=== PATIENT | male | born 1940 | race Caucasian/White ===

== ENCOUNTER 2024-05-14 08:36 | Inpatient (IN) | payer OTHER, SELFPAY ==
[2024-05-14] VITALS (18 sets, daily range): BP systolic 103–135; BP diastolic 48–101; PULSE 70; BMI 22.7; BMI 22.8; BMI 22.3
[2024-05-14 05:23] LABS: Urine Albumin Trace (Neg - Trace); Urine Bilirubin Negative (Negative); Urine Character Clear (Clear); Urine Color Yellow; Urine Glucose Negative (Negative); Urine Ketone Negative (Negative); Urine Leukocyte Negative (Negative); Urine Nitrite Negative (Negative); Urine Occult Blood Negative (Negative); Urine Specific Gravity 1.015 (<1.030); Urine Urobilinogen Negative (Neg - 1+); Urine pH 6.5 (5.0-9.0)
[2024-05-14 05:26] LABS: % Basophils 0.2 % (0-2); % Immature Granulocytes 0.5 % (0-0.5); % Lymphocytes 4.2 % (20.5-51.1); % Monocytes 6.7 % (1.7-9.3); % Neutrophils 88.4 % (42.2-75.2); Absolute Immature Granulocytes 0.1 10^3/uL (0-0.05); Absolute Lymphocytes 0.7 10^3/uL (1.2-3.4); Absolute Monocytes 1.1 10^3/uL (0.1-0.6); Hematocrit 30.2 % (39.0-52.0); Hemoglobin 10.9 g/dL (13.0-18.0); Mean Corp Hgb Conc. 36.1 g/dL (33.0-37.0); Mean Corpuscular Hgb 29.5 pg (27.0-31.0); Mean Corpuscular Volume 81.6 fL (80.0-94.0); Mean Platelet Volume 9.3 fL (7.4-10.4); Nucleated Red Blood Cells % 0 % (-); Platelet Count 208 10^3/uL (130-400); Red Cell Dist. Width 12.9 % (11.5-14.5); White Blood Cell Count 15.8 10^3/uL (4.8-10.8)
[2024-05-14 05:51] LABS: ALT (SGPT) 17 U/L (0-50); AST (SGOT) 48 U/L (17-59); Alkaline Phosphatase 128 U/L (38-126); Blood Urea Nitrogen 35 mg/dl (9-20); Calcium 12.7 mg/dl (8.4-10.2); Carbon Dioxide 22 mmol/L (22-30); Chloride 92 mmol/L (98-107); Estimated Creatinine Clearance 53 ml/min; Glucose 114 mg/dl (70-99); Potassium 3.2 mmol/L (3.5-5.1); Sodium 126 mmol/L (135-145); Total Bilirubin 0.7 mg/dl (0.2-1.3); Total Protein 6.5 g/dl (6.3-8.2); eGFR > 60.00
--- NOTE | 2024-05-14 06:21 | ED.GENMED ---
History of Present Illness
General
Chief Complaint: Change in Mental Status
Source: patient, family (Son who is at bedside) and ambulance crew
Exam Limitations: none
Time Seen by Provider: 05/14/24 05:12
Nursing documentation reviewed up to this point in time: agreed with except (Patient does not have history of cancer, no history of thyroid cancer.)
History of Present Illness
History of Present Illness:
This is an 83-year-old gentleman who resides at home with his son. He has history of hypertension, GERD, hyperlipidemia as well as history of hyperparathyroidism with hypercalcemia for which he underwent parathyroidectomy yesterday at [facility]. Discharged to home yesterday afternoon and was doing well until yesterday evening when family became concerned for mild confusion. Patient seemed to have difficulty with his speech, seems somewhat confused, word searching. He was also
noted to have 1 or 2 episodes of diarrhea yesterday but no falls.
He has not had a fever, no cough, no shortness of breath. No headache, no dizziness nor lightheadedness. No abdominal pain. No nausea or vomiting.
He does note mild low back pain but reports history of chronic low back pain.
Since arrival to the ED, son who is now at bedside feels that his father overall appears improved. He does note that his father has occasional confusion, mild dementia but seemed much more pronounced last night.
They have not noticed any tremor and patient himself denies feeling tremulous.
Past History
Past History
ED Past Medical History: GERD, HTN, Hypercholesterolemia and Other (Hyperparathyroidism, hypercalcemia; chronic low back pain); Negative Cancer
ED Past Surgical History: Other (Parathyroidectomy May 13, 2024 at [facility])
Social History
Tobacco: Non-smoker
Alcohol: None
Personal:
Living: with family
Employment: Retired
Family History
Family History: Other (Noncontributory)
Phy Exam
Physical Exam
Physical Exam:
GENERAL: 83-year-old gentleman appears his stated age, bright and alert, pleasant, appears in no acute distress. Mild intermittent word searching is noted, very mild confusion, initially thought that the year was 1999 and but then once corrected,
was able to repeat the correct year.
EYE: pupils equal and reactive. anicteric
NECK: Anterior lower neck incision dry and intact with intact Steri-Strips. No local tenderness to palpation. Supple, no meningismus, no significant adenopathy.
ENT: posterior pharynx is clear, oral mucosa is minimally dry.. TM clear b/l, nares patent.
CARDIAC: Regular rate and rhythm. no murmur.
LUNGS: Clear breath sounds bilaterally, no acute respiratory distress, no wheezes/rales/rhonchi
ABDOMEN: Soft, nondistended, without focal tenderness, no r/g, no cvat. normoactive BS.
NEUROLOGICAL: Alert and oriented x2, no focal neuro deficits. Motor strength is 5/5 bilaterally. Gross sensation is intact. No tremor nor asterixis.
SKIN: Warm and dry, normal color, skin intact. No rash.
MUSCULOSKELETAL: No C/C/E. peripheral pulses are full and equal b/l. No palpable tenderness.
PSYCH: Normal and appropriate interaction.
Course
Orders/Labs/Results
Orders:
Orders
05/14/24 04:31
Straight cath- Treatment ONCE
Pulse Ox/cont/shift [RESP] Urgent
Quantity: 1
Special Instructions: CONTINUOUS
05/14/24 04:49
Complete Blood Count/With Diff Urgent
Comprehensive Metabolic Panel Urgent
Urinalysis Reflex To Culture Urgent
Date Specimen was Collected: 05/14/24
Time Specimen was Collected: 04:31
05/14/24 05:28
CT Head W/o Iv Contrast Urgent
Comment:
Reason For Exam: acute change in MS
05/14/24 05:58
0.9% Sodium Chloride 1000 ml [Nss] 1,000 ml IV BOLUS
Potassium Chloride [KCl] 40 meq PO NOW STA
05/14/24 06:21
Potassium Chloride Powder [Klor-Con] 40 meq .ROUTE .STK-MED ONE
05/14/24 06:24
Potassium Chloride Powder [Klor-Con] 40 meq PO NOW STA
Abnormal Lab Results
05/14/24
04:49
WBC 15.8 H 10^3/uL
(4.8-10.8)
RBC 3.70 L 10^6/uL
(4.70-6.10)
Hgb 10.9 L g/dL
(13.0-18.0)
Hct 30.2 L %
(39.0-52.0)
Abs Immat Gran (auto) 0.1 H 10^3/uL
(0-0.05)
Absolute Neuts (auto) 14.0 H 10^3/uL
(1.4-6.5)
Absolute Lymphs (auto) 0.7 L 10^3/uL
(1.2-3.4)
Absolute Monos (auto) 1.1 H 10^3/uL
(0.1-0.6)
Neutrophils % 88.4 H %
(42.2-75.2)
Lymphocytes % 4.2 L %
(20.5-51.1)
Sodium 126 L mmol/L
(135-145)
Potassium 3.2 L mmol/L
(3.5-5.1)
Chloride 92 L mmol/L
(98-107)
BUN 35 H mg/dl
(9-20)
Glucose 114 H mg/dl
(70-99)
Calcium 12.7 H mg/dl
(8.4-10.2)
Alkaline Phosphatase 128 H U/L
(38-126)
05/14/24 04:49
05/14/24 04:49
Vital Signs
Initial and Last Documented VS:
Initial Vital Signs
Temp Pulse Resp BP Pulse Ox
97.9 F 79 22 135/73 99
05/14/24 04:20 05/14/24 04:20 05/14/24 04:20 05/14/24 04:20 05/14/24 04:20
Last Documented Vital Signs
Temp Pulse Resp BP Pulse Ox
97.5 F 65 15 115/48 96
05/14/24 07:06 05/14/24 07:06 05/14/24 07:06 05/14/24 07:06 05/14/24 07:06
MDM/Problems Addressed
Differential Diagnosis Includes:
Acute confusion, mild intermittent word searching. Concern for adverse reaction to anesthesia, concern for acute hypocalcemia, acute electrolyte abnormality, other consideration is CVA however no focal neuro deficits.
Will check labs, CT of the head.
Will continue close monitoring of neurostatus.
Chronic conditions affecting care: HTN and Other (Hyperparathyroidism)
*Radiology
Radiology exam reviewed: radiology read reviewed (CT of the head shows no hemorrhage nor other acute intracranial abnormality. Chronic microvascular disease, global parenchymal volume loss.)
*Pulse Oximetry
Patient hypoxic: no
*Network Analyst Interpretation
Rate: normal
Interpretation: normal
Rhythm: sinus
*Critical Care Note
Total Time (30-74mins, 75-104mins- exclusive of procedures): Not Applicable
Update Note
Update Note:
05/14/[address] of the head shows no acute findings, chronic microvascular disease with global parenchymal volume loss.
Labs remarkable for elevated white blood cell count of 15.8, mild anemia, moderate hyponatremia with sodium of 126, mild hypokalemia with potassium of 3.2.
Moderately elevated BUN of 35 which is trended up significantly from previous. Normal creatinine. Hypercalcemia at 12.7. Urinalysis is unremarkable.
Patient remains awake and alert but remains somewhat confused, intermittently pointing to unknown objects. Word searching and stumbling through his verbalizations which according to son is new for him. Son concerned that his father continues to
seem 'off' much more confused than usual.
Mild sporadic hyponatremia noted in the past but most recently 2021 sodium near normal at 134.
Elevated BUN of 35 has trended up significantly from 13, 2 years ago.
Will replete potassium orally and initiate IV normal saline for gentle hydration.
Due to continued confusion, concern for adverse reaction to anesthesia, acute hyponatremia related versus acute neurologic event thus patient will require acute hospitalization.
ED Attending Note
-
Portions of this chart may have been created with voice recognition software.� Occasional wrong word or��sound alike� substitutions may have occurred due to the inherent limitations of voice recognition software.
Discharge Plan
Departure
Patient Disposition: Admit
Date of Disposition: 05/14/24
Time of Disposition: 07:12
Admit to: Med/Surg
Presentation/result/management discussed w/ accepting MD/DO: Hospitalist
Condition: Fair
Discharge Problem:
Acute change in mental status/confusion, Acute hyponatremia, hypercalcemia r/t hyperparathyroidism, Acute hypokalemia, S/P parathyroidectomy
Prescriptions:
No Action
flaxseed oil 1,000 MG capsule
1,000 mg PO BID
green tea leaf extract 250 MG capsule
315 mg PO DAILY
B-complex with vitamin C 1 EACH tablet
1 ea PO HS
coenzyme Q10 [Co Q-10] 100 MG capsule
300 mg PO DAILY
cinnamon bark [Cinnamon] 500 MG capsule
1,000 mg PO DAILY
Astragalus 470 MG capsule
470 mg PO BID
red yeast rice 600 MG capsule
600 mg PO BID
hydrochlorothiazide 25 MG tablet
25 mg PO DAILY
milk thistle 500 MG capsule
1,000 mg PO BID
niacin 100 MG tablet
100 mg PO HS
multivitamin 1 EACH tablet
1 ea PO DAILY
atorvastatin 80 MG tablet
20 mg PO HS
ascorbic acid (vitamin C) [Vitamin C] 500 MG tablet
1,000 mg PO DAILY
amlodipine [Norvasc] 10 MG tablet
10 mg PO DAILY
losartan [Cozaar] 100 MG tablet
100 mg PO DAILY
zinc 10 MG tablet
20 mg PO DAILY
cholecalciferol (vitamin D3) 2,000 UNITS tablet
2,000 units PO DAILY
Magnesium 250 MG Tablet
500 mg PO DAILY
hydrochlorothiazide 25 mg
25 mg PO DAILY
omeprazole 40 mg
40 mg PO DAILY
ginseng 100 mg Capsule
600 mg PO DAILY
garlic extract 1,000 mg
2 tab PO DAILY
Referrals:
UNKNOWN - PT DOES,NOT KNOW [Family Provider] -
Interventions
Interventions:
*Risk Screen - Suicide Last Done: 05/14/24 04:20
*General Assessment Last Done: 05/14/24 04:20
*Neglect/Abuse Screening Last Done: 05/14/24 04:20
ED- Fall Risk Assessment Last Done: 05/14/24 04:20
*ED COVID-19 Vaccine History Last Done: 05/14/24 04:20
ED- Neurological Assessment Last Done: 05/14/24 04:32
ED Swallowing Screen Last Done: 05/14/24 04:32
Discharge Date and Time
Print Language: JAPANESE
[2024-05-14] MEDS: KLOR-CON 40 MEQ PO (06:25)
[2024-05-14] MEDS: NSS 1000 IV (06:25)
--- NOTE | 2024-05-14 07:45 | EDRN ---
this RN entered the pts room and the pt is resting in stretcher in the lowest position, side rails up x2, call bridges within reach, HOB elevated, no s/s of distress, VS WNL, NIH performed and found to be at a score of 1, the pt asked this RN to change
his brief, this RN changed the pts brief and gown and linens, will continue to monitor the pt closely
--- NOTE | 2024-05-14 08:09 | HPS.HSE ---
Addendum entered and electronically signed by Steve Singh MD 05/14/24 14:56:
f/u BMP showing Ca down to 11.9 trending down, PTH 10 only.
Original Note:
Family Physician
-
Family Physician: NOT KNOW UNKNOWN - PT DOES
Chief Complaint
-
Confusion/word finding difficulty
History of Present Illness
Patient is 83-year-old male with past medical history of essential hypertension, hyperlipidemia, history of pacemaker placement and removal?, Parathyroid adenoma was brought in by family after patient was noted to be confused and having word
finding difficulty. According to ER discussion with family patient may have some baseline cognitive dysfunction but felt to be worse than normal. Of note patient have underwent parathyroidectomy by Dr. Mendoza at [facility] on
05/13/yesterday. Postoperatively patient was provided calcium and was discharged on standard tapering dose of calcium. Patient at home was noted to be more confused and disoriented. In ER patient also remains disoriented and not able to provide
clear history. I contacted patient's son and ENT doctor and discussed case in with side new diarrhea no other symptom has been reported.
Patient family planning to visit patient soon in hospital and will be able to gather more information.
Medical History
Past Medical History
Past Medical History: Reports Other
Additional Past Medical History:
essential hypertension, hyperlipidemia, history of pacemaker placement and removal?, Parathyroid adenoma
Past Surgical History: Reports Other
Social History
Tobacco: Non-smoker
Alcohol: Occasional
Living: With Family
Family History
Family History: Not pertinent
Allergies / Home Medications
Allergies reflects when Allergies were last updated in [facility].
Home Medications with original date entered in [facility]
Allergy/Medication List:
Allergies
Allergy/AdvReac Type Severity Reaction Status Date / Time
Cephalosporins Allergy pt denies Verified 05/14/24 04:18
allergy
penicillin G Allergy Rash Verified 05/14/24 04:18
Penicillins Allergy Rash Verified 05/14/24 04:18
Home Medications
B-complex with vitamin C 1 ea PO HS 10/11/11
astragalus root 470 mg capsule (Astragalus) 470 mg PO BID 10/11/11
cinnamon bark 500 mg capsule (Cinnamon) 1,000 mg PO DAILY 10/11/11
coenzyme Q10 100 mg capsule (Co Q-10) 300 mg PO DAILY 10/11/11
flaxseed oil 1,000 mg capsule 1,000 mg PO BID 10/11/11
green tea leaf extract 250 mg capsule 315 mg PO DAILY 10/11/11
red yeast rice 600 mg capsule 600 mg PO BID 10/11/11
Magnesium 500 mg PO DAILY 12/04/21
amlodipine 10 mg tablet (Norvasc) 10 mg PO DAILY 12/04/21
ascorbic acid (vitamin C) 500 mg tablet (Vitamin C) 1,000 mg PO DAILY 12/04/21
atorvastatin 80 mg tablet 20 mg PO HS 12/04/21
cholecalciferol (vitamin D3) 50 mcg (2,000 unit) tablet 2,000 units PO DAILY 12/04/21
hydrochlorothiazide 25 mg tablet 25 mg PO DAILY 12/04/21
losartan 100 mg tablet (Cozaar) 100 mg PO DAILY 12/04/21
milk thistle 500 mg capsule 1,000 mg PO BID 12/04/21
multivitamin 1 ea PO DAILY 12/04/21
niacin 100 mg tablet 100 mg PO HS 12/04/21
zinc 10 mg tablet 20 mg PO DAILY 12/04/21
garlic extract 2 tab PO DAILY 05/14/24
ginseng 100 mg capsule 600 mg PO DAILY 05/14/24
hydrochlorothiazide 25 mg PO DAILY 05/14/24
omeprazole 40 mg PO DAILY 05/14/24
Review of Systems
-
Unable to obtain full review of systems at this time due to: Acuity
Physical Exam
Vital Signs
Vital Signs
Temp Pulse Resp BP Pulse Ox
97.5 F 65 15 115/65 99
05/14/24 07:06 05/14/24 08:00 05/14/24 07:06 05/14/24 08:00 05/14/24 08:00
Physical Exam
General: Comfortable and Conversant
HEENT: Atraumatic and Other (Midline neck dressing, no bleeding.); No Oxygen
Respiratory: Clear
Cardiac: S1/S2 and Regular Rhythm; No Murmur or Rub
GI: Soft, Non Tender, Non Distended and Normal Bowel Sounds; No Organomegaly
Musculoskeletal: No Edema
Skin: No Rash
Neuro: Awake, Alert, Oriented and Nonfocal/grossly intact
Laboratory Results
-
05/14/24 04:49
05/14/24 04:49
Laboratory Results
Total Bilirubin 0.7 mg/dl (0.2-1.3) 05/14/24 04:49
AST 48 U/L (17-59) 05/14/24 04:49
ALT 17 U/L (0-50) 05/14/24 04:49
Alkaline Phosphatase 128 U/L (38-126) H 05/14/24 04:49
Data Reviewed
-
Lab Data: Labs Reviewed by me and Discussed with Family
Impression/Plan
-
1. Acute metabolic encephalopathy
h/o Baseline cognitive decline?
-patient remains pleasantly disoriented and not able to provide any meaningful information
-suspecting this from hypercalcemia
-have word finding difficulty - need to r/o CVA/expressive aphasia
-no signs of sepsis, WBC elevated 16k, afebrile, UA clear, cxr pending
-Not on any narcotic/sedative medication
2. POD #1 parathyroidectomy for parathyroid adenoma
Hyperglycemia
-Patient underwent parathyroidectomy for parathyroid adenoma by Dr. Oscar Mendoza in [facility], contacted and case discussed. planning to send me pre-op labs once get chance.
-Patient Total ca 12.7, ionized calcium/vit D/PTH level check ordered
-maintain on IVF for now
3. Hyponatremia
-presumed acute and with reported diarrhea hypovolemic in nature
-Urine na/osm check pending
-will need to provide IVF for hypercalcemia treatment
4. Hypokalemia
-replaced
5. R/o CVA
-Expressive aphasia/word finding difficulty likely with Hypoglycemia/confusion related
-As patient had parathyroidectomy/neck manipulation emergent CTA head and neck to rule out any vascular complication
-Routine MRI brain without contrast ordered to rule out small stroke as well
-avoiding full ASA loading with neck sx, will provide baby aspirin
-Need to clear ST eval before oral meds given
6. Essential HTN
-BP normal, hold home anti-hypertensive medication
7. HLD
- continue statin
DVT PPX - scd
Full code
Case discussed with patient primary ENT
Son briefly updated, planning to visit hospital will discuss further once in hospital
Total time spent : 77 mins
I personally saw and examined the patient.
I have reviewed all diagnostic interpretations and treatment plans as written.
Time includes patient management by me, time spent at the patients bedside, time to review lab and imaging results, discussing patient care, documentation in the medical record, and time spent with the family or caregiver and discussing care plan
with RN/Consultants.
[2024-05-14 08:37] LABS: Osmolality Urine 342 mOsm/kg (300-900)
--- NOTE | 2024-05-14 08:45 | EDRN ---
this RN gave verbal report to the receiving nurse Lemuel CLAY, this RN transferred the pt to ED Bed #17
[2024-05-14 08:56] LABS: Calcium 12.3 mg/dl (8.4-10.2)
[2024-05-14 09:05] LABS: Urine Sodium 61 mmol/L (30-90)
[2024-05-14 09:08] LABS: Ionized Calcium 1.61 mMOL/L (1.15-1.33)
[2024-05-14] MEDS: LR 1000 IV ×2 (09:46→19:56)
[2024-05-14 10:10] LABS: Vitamin D, 25-OH*** 53.9 ng/mL (30-80)
[2024-05-14 11:50] LABS: Intact PTH 10.3 pg/ml (13.6-85.8)
[2024-05-14] MEDS: LOW STRENGTH ASPIRIN 81 MG PO (12:00)
[2024-05-14 12:32] LABS: Blood Urea Nitrogen 25 mg/dl (9-20); Calcium 11.9 mg/dl (8.4-10.2); Carbon Dioxide 28 mmol/L (22-30); Chloride 96 mmol/L (98-107); Estimated Creatinine Clearance 59 ml/min; Glucose 115 mg/dl (70-99); Potassium 3.8 mmol/L (3.5-5.1); Sodium 128 mmol/L (135-145); eGFR > 60.00
--- NOTE | 2024-05-14 14:18 | PTCARENOTE ---
1418 Pt arrived from ED to room 337-2. Pt accompanied by reliability technician.
[2024-05-14 17:47] LABS: Blood Urea Nitrogen 22 mg/dl (9-20); Calcium 11.4 mg/dl (8.4-10.2); Carbon Dioxide 25 mmol/L (22-30); Chloride 98 mmol/L (98-107); Estimated Creatinine Clearance 73 ml/min; Glucose 98 mg/dl (70-99); Potassium 3.4 mmol/L (3.5-5.1); Sodium 127 mmol/L (135-145); eGFR > 60.00
--- NOTE | 2024-05-14 18:38 | CON.MD ---
Consultation - Medical
-
83 y.o. WM admitted with hypercalcemia calcium 12.7 and is POD#1 parathyroidectomy at [facility]. Pt is mentating better than described upon arrival. reportedly has been confused and disoriented. He indicates was administered PO calcium following
his surgery in the hospital. Currently, calcium improving with IV hydration. Complicating picture is low Na, also improving and in the context of diarrhea. Baseline calcium from 2021 here was 11.0. PTH currently suppressed at 10. Agree with gentle
IV hydration which is correcting the calcium appropriately. I am not familiar with the parathyroid postsurgical protocol at [facility], but many centers administer calcium postoperatively for a few days to avoid hypocalcemia from parathyroid
glandular 'stunning' which can occur in the 3 days following surgery. That the PTH is fully suppressed suggests the surgery was successful, as parathyroid hyperactivity is difficult to suppress with active disease, even with hypercalcemia. Would
avoid the temptation to treat with bisphosphonates, as he can still experience a calcium dip once the calcium supplementation is fully out of his system. I do not believe that manipulation of the parathyroid glands was causative. Would continue
present course with IV fluids and electrolyte monitoring, and continued withholding of calcium. If for some reason calcium remains elevated can find alternative to HCTZ at home, or even start low dose sensipar, but hopefully that will not be needed.
He will need close monitoring as an outpatient, but in most cases the levels settle out without need for additional treatment or supplementation. Please call me with questions or concerns, thanks.
[2024-05-14] MEDS: LIPITOR 20 MG PO (23:58)
[2024-05-15 00:59] LABS: Blood Urea Nitrogen 24 mg/dl (9-20); Calcium 11.2 mg/dl (8.4-10.2); Carbon Dioxide 25 mmol/L (22-30); Chloride 100 mmol/L (98-107); Estimated Creatinine Clearance 64 ml/min; Glucose 93 mg/dl (70-99); Potassium 3.4 mmol/L (3.5-5.1); Sodium 129 mmol/L (135-145); eGFR > 60.00
[2024-05-15 03:15] VITALS: BP 117/66
[2024-05-15 05:46] LABS: Hematocrit 29.7 % (39.0-52.0); Hemoglobin 10.6 g/dL (13.0-18.0); Mean Corp Hgb Conc. 35.7 g/dL (33.0-37.0); Mean Corpuscular Volume 84.1 fL (80.0-94.0); Platelet Count 210 10^3/uL (130-400); Red Blood Cell Count 3.53 10^6/uL (4.70-6.10); Red Cell Dist. Width 13.3 % (11.5-14.5); White Blood Cell Count 9.2 10^3/uL (4.8-10.8)
[2024-05-15 06:08] LABS: Blood Urea Nitrogen 21 mg/dl (9-20); Calcium 11.3 mg/dl (8.4-10.2); Carbon Dioxide 27 mmol/L (22-30); Chloride 97 mmol/L (98-107); Estimated Creatinine Clearance 64 ml/min; Glucose 98 mg/dl (70-99); HDL Cholesterol 49 mg/dl; LDL Cholesterol, Calculated 90 mg/dl; Potassium 3.4 mmol/L (3.5-5.1); Sodium 130 mmol/L (135-145); Total Cholesterol 157 mg/dl (50-199); Triglyceride 93 mg/dl (10-149); Very Low Density Lipoprotein 18 mg/dl (0-30); eGFR > 60.00
[2024-05-15 08:07] VITALS: BP 121/68
[2024-05-15 08:55] VITALS: BP 133/79; PULSE 71; O2SAT 97
[2024-05-15 09:02] VITALS: BP 133/79; PULSE 71; O2SAT 97
[2024-05-15] MEDS: LOW STRENGTH ASPIRIN 81 MG PO (10:02)
[2024-05-15] MEDS: LR 1000 IV ×2 (10:05→20:21)
[2024-05-15 12:36] LABS: Blood Urea Nitrogen 19 mg/dl (9-20); Calcium 11.1 mg/dl (8.4-10.2); Carbon Dioxide 30 mmol/L (22-30); Chloride 97 mmol/L (98-107); Estimated Creatinine Clearance 64 ml/min; Glucose 95 mg/dl (70-99); Potassium 3.6 mmol/L (3.5-5.1); Sodium 131 mmol/L (135-145); eGFR > 60.00
--- NOTE | 2024-05-15 13:44 | W.PN.HOSP.TC ---
Today's Communication/Plan
-
f/u Ca level
maintain on IVf
continue pt/ot
Assessment / Plan
Assessment / Plan
1. Acute metabolic encephalopathy - Improved
-patient mentation is much better today
-suspecting this from hypercalcemia
-have word finding difficulty - need to r/o CVA/expressive aphasia
-no signs of sepsis/infection. wbc normalized.
-Not on any narcotic/sedative medication
2. POD #2 parathyroidectomy for parathyroid adenoma
Hypercalcemia
-Patient underwent parathyroidectomy for parathyroid adenoma by Dr. Oscar Mendoza in [facility], contacted and case discussed. planning to send me pre-op labs once get chance.
-Patient Total ca 12.7, ionized calcium 1.6 PTH 10 in ER
-Calcium trending down with IVF.
-Endocrinology evaluated and help appreciated.
-Last BMP showing calcium of 11.1, repeat ordered at 1800
3. Hyponatremia - Improving
-presumed acute and with reported diarrhea hypovolemic in nature
-improving slowly with IVF
4. Hypokalemia
-replaced
5. R/o CVA
-Expressive aphasia/word finding difficulty likely with Hypoglycemia/confusion related
-CTA h&N did not show any carotid stenosis/clot
-MRI brain cancelled?
6. Essential HTN
-BP normal, hold home anti-hypertensive medication
7. HLD
- continue statin
DVT PPX - scd
Full code
Care plan discussed with Dr. Murillo/Primary ENT yesterday
Anticipated Discharge: Within 24 hours
Subjective/Interval History
-
Date of Service: May 15, 2024
Patient mentation is better
No reported issues overnight
Objective Data
-
Labs:
Laboratory Results
05/15/24 05/15/24 05/15/24
05:25 11:53 18:00
WBC 9.2
Hgb 10.6 L
Hct 29.7 L
Plt Count 210
Sodium 130 L 131 L Pending
Potassium 3.4 L 3.6 Pending
Chloride 97 L 97 L Pending
Carbon Dioxide 27 30 Pending
BUN 21 H 19 Pending
Creatinine 0.8 0.8 Pending
Glucose 98 95 Pending
Calcium 11.3 H 11.1 H Pending
Vital Signs:
Vital Signs
Temp Pulse Resp BP Pulse Ox
97.4 F 71 17 121/68 94
05/15/24 08:07 05/15/24 08:07 05/15/24 08:07 05/15/24 08:07 05/15/24 08:07
I&O
05/14/24 05/15/24 05/16/24
06:59 06:59 06:59
Intake Total 240 / 240
Output Total 1200 / 1200
Balance -960 / -960
Review of Systems
-
Respiratory: Reports No Symptoms
Cardiac: Reports No Symptoms
Abdomen/GI: Reports No Symptoms
Physical Exam
-
General: No Apparent Distress and Comfortable
HEENT: Negative Oxygen
Respiratory: Clear to Auscultation
Cardiac: Regular Rhythm and S1/S2; Negative Murmur or Rub
GI: Soft, Nontender, Nondistended and Normal Bowel Sounds
Musculoskeletal: No Edema
Neuro: Awake, Alert, Oriented, No Motor Deficits and Nonfocal/Grossly Intact
Psych: Calm
[2024-05-15 15:51] VITALS: BP 118/68
--- NOTE | 2024-05-15 18:26 | CM ---
met with patient at bedside.patient lives with his son in house with 1 deric,his bed and bath is on the first level.he amb with a cane,and is I with his adl.his sons jyoti and angeline share poa.dr stephens is his pcp and he uses [facility] [place]
pa.ptient states he has never had a vn or been to ip rehab.
pmh:parathyroidectomy 1 day ago at [facility],mild dementia
patient is adm with metabolic encephelopathy,he is on ivf,ca trending down,seen by pt who rec home vs snf.plan is to follow therapy's rec.
[2024-05-15 18:56] LABS: Blood Urea Nitrogen 23 mg/dl (9-20); Calcium 10.8 mg/dl (8.4-10.2); Carbon Dioxide 26 mmol/L (22-30); Chloride 96 mmol/L (98-107); Estimated Creatinine Clearance 64 ml/min; Glucose 148 mg/dl (70-99); Potassium 3.8 mmol/L (3.5-5.1); Sodium 130 mmol/L (135-145); eGFR > 60.00
[2024-05-15] MEDS: LIPITOR 20 MG PO (20:23)
[2024-05-15 23:03] VITALS: BP 129/75
[2024-05-16 03:19] VITALS: BP 137/78
[2024-05-16] MEDS: LR 1000 IV (04:55)
[2024-05-16 06:49] VITALS: BMI 22.0
[2024-05-16 07:26] VITALS: BP 131/75
[2024-05-16 08:11] LABS: Hemoglobin 10.9 g/dL (13.0-18.0); Mean Corp Hgb Conc. 35.2 g/dL (33.0-37.0); Mean Corpuscular Hgb 29.4 pg (27.0-31.0); Mean Corpuscular Volume 83.6 fL (80.0-94.0); Mean Platelet Volume 9.4 fL (7.4-10.4); Platelet Count 247 10^3/uL (130-400); Red Blood Cell Count 3.71 10^6/uL (4.70-6.10); Red Cell Dist. Width 13.1 % (11.5-14.5); White Blood Cell Count 10.3 10^3/uL (4.8-10.8)
[2024-05-16 08:33] LABS: Blood Urea Nitrogen 17 mg/dl (9-20); Calcium 10.6 mg/dl (8.4-10.2); Carbon Dioxide 26 mmol/L (22-30); Chloride 100 mmol/L (98-107); Estimated Creatinine Clearance 72 ml/min; Glucose 75 mg/dl (70-99); Potassium 3.8 mmol/L (3.5-5.1); Sodium 133 mmol/L (135-145); eGFR > 60.00
[2024-05-16] MEDS: LOW STRENGTH ASPIRIN 81 MG PO (08:57)
[2024-05-16 11:21] VITALS: BP 131/67
--- NOTE | 2024-05-16 13:33 | W.PN.HOSP.TC ---
Today's Communication/Plan
-
d/c home
Assessment / Plan
Assessment / Plan
1. Acute metabolic encephalopathy - Improved significantly
-suspecting this from hypercalcemia
-have word finding difficulty - need to r/o CVA/expressive aphasia
-no signs of sepsis/infection. wbc normalized.
-Not on any narcotic/sedative medication
2. POD #3 parathyroidectomy for parathyroid adenoma
Hypercalcemia
-Patient underwent parathyroidectomy for parathyroid adenoma by Dr. Oscar Mendoza in [facility], contacted and case discussed. planning to send me pre-op labs once get chance.
-Patient Total ca 12.7, ionized calcium 1.6 PTH 10 in ER
-Calcium trending down with IVF.
-Endocrinology evaluated and help appreciated.
-Ca of 10.6 today, repeat BMP check provided on Saturday. Patient to f/u with ENT on .
-Patient advised against taking any vitamin D/calcium for next 48 hours and after repeat labs could be resumed back.
3. Hyponatremia - Improved
-presumed acute and with reported diarrhea hypovolemic in nature
-improving slowly with IVF
4. Hypokalemia
-replaced
5. R/o CVA
-Expressive aphasia/word finding difficulty likely with Hypoglycemia/confusion related
-CTA h&N did not show any carotid stenosis/clot
-MRI brain cancelled? no residual symptoms at this point.
6. Essential HTN
-resume back at discharge
7. HLD
- continue statin
DVT PPX - scd
Full code
Care plan discussed with Dr. Murillo/Primary ENT on day of admission
Son updated 05/16
Anticipated Discharge: Today
Subjective/Interval History
-
Date of Service: May 16, 2024
Denies of having any issue
Minimal confusion persists
Objective Data
-
Labs:
Laboratory Results
05/16/24
06:14
WBC 10.3
Hgb 10.9 L
Hct 31.0 L
Plt Count 247
Sodium 133 L
Potassium 3.8
Chloride 100
Carbon Dioxide 26
BUN 17
Creatinine 0.7
Glucose 75
Calcium 10.6 H
Vital Signs:
Vital Signs
Temp Pulse Resp BP Pulse Ox
97.5 F 72 18 131/67 98
05/16/24 11:21 05/16/24 11:21 05/16/24 11:21 05/16/24 11:21 05/16/24 11:21
I&O
05/15/24 05/16/24 05/17/24
06:59 06:59 06:59
Intake Total 240 / 240 2760 / 2760
Output Total 1200 / 1200 4085 / 4085
Balance -960 / -960 -1325 / -1325
Review of Systems
-
Respiratory: Reports No Symptoms
Cardiac: Reports No Symptoms
Abdomen/GI: Reports No Symptoms
Physical Exam
-
General: No Apparent Distress and Comfortable
HEENT: Negative Oxygen
Respiratory: Clear to Auscultation
Cardiac: Regular Rhythm and S1/S2; Negative Murmur or Rub
GI: Soft, Nontender, Nondistended and Normal Bowel Sounds
Musculoskeletal: No Edema
Neuro: Awake, Alert, Oriented, No Motor Deficits and Nonfocal/Grossly Intact
Psych: Calm
--- NOTE | 2024-05-16 17:21 | W.DCSUMMARY ---
Discharge Summary
Discharge Data
Date of Admission: 05/14/24
Date of Discharge: 05/16/24
-
Pending Results: No
Hospital Course
Discharging Physician : Dr Steve Singh
Disposition : To home
Primary care physician : Unknown
Principal Discharge diagnosis :
Acute metabolic encephalopathy from hypercalcemia
Hypovolemic hyponatremia
Hypokalemia
Chronic Discharge diagnosis :
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
Essential hypertension
Hyperlipidemia
Hospital Course :
83-year-old male with above-mentioned past medical history came to ER after having new onset of confusion. Patient underwent elective parathyroidectomy for parathyroid adenoma day before and [facility] by ENT. Post discharge at home
patient was noted to be confused/disoriented with some dysarthria and word finding difficulty noted. In ER patient had a CTA head and neck done and ruled out any structural carotid problem/clot. No acute abnormality on brain tissue. Patient
calcium was noted to be 12.7 with ionized calcium elevated to 1.6. PTH was appropriately low at 10. Patient also had some associated hyponatremia although was felt to be related to diarrhea secondary to hypercalcemia. Reason for Hypoglycemia was
unclear as patient underwent parathyroidectomy day before, possibility of high calcium from IV replacement provided postoperatively versus spurious elevation. Case was discussed with primary ENT and endocrinology and patient was started on IV
fluid. As patient at risk of appropriate to hypocalcemia post parathyroidectomy no other therapy of bisphosphonate/calcitonin provided. Over next 48 hours patient calcium trended down and at discharge was 10.6. Patient mentation was better and
patient preferred to follow-up with primary ENT on outpatient basis. Follow-up prescription for BMP within 48 hours was provided. Patient was instructed to stop vitamin D calcium for 48 hours and until repeat labs showed normalization of calcium.
Important imaging findings :
None
Procedure findings :
None
Discharge Plan
-
Patient Disposition: Home (Routine Discharge)
Discharge Diagnosis/Procedures: Hypercalcemia, Confusion
Condition: Fair
Diet: Regular
Activity: As tolerated
Driving Restrictions: No driving for 24 hours
Bathing Restrictions: OK to Shower
Blood Work: BMP in 1 week
Referrals:
Oscar Mendoza MD [Non-Admitting Privileges] - 05/21/24
UNKNOWN - PT DOES,NOT KNOW [Family Provider] -
Additional Discharge Medication Instructions: Stop Hydrocholorothiazide
Prescriptions:
Continued
flaxseed oil 1,000 MG capsule
1,000 mg PO BID
green tea leaf extract 250 MG capsule
315 mg PO DAILY
B-complex with vitamin C 1 EACH tablet
1 ea PO HS
coenzyme Q10 [Co Q-10] 100 MG capsule
300 mg PO DAILY
cinnamon bark [Cinnamon] 500 MG capsule
1,000 mg PO DAILY
Astragalus 470 MG capsule
470 mg PO BID
red yeast rice 600 MG capsule
600 mg PO BID
milk thistle 500 MG capsule
1,000 mg PO BID
niacin 100 MG tablet
100 mg PO HS
ascorbic acid (vitamin C) [Vitamin C] 500 MG tablet
1,000 mg PO DAILY
amlodipine [Norvasc] 10 MG tablet
10 mg PO DAILY
losartan [Cozaar] 100 MG tablet
100 mg PO DAILY
zinc 10 MG tablet
20 mg PO DAILY
ginseng 100 mg Capsule
600 mg PO DAILY
garlic extract 1,000 mg
2 tab PO DAILY
magnesium oxide 250 mg magnesium Tablet
250 mg PO DAILY
omeprazole 40 mg Capsule,Delayed Release(Dr/Ec)
40 mg PO DAILY
atorvastatin 20 mg Tablet
20 mg PO DAILY
Held
multivitamin 1 EACH tablet
1 ea PO DAILY
Hold Instructions: Resume on 05/19/24.
cholecalciferol (vitamin D3) 2,000 UNITS tablet
2,000 units PO DAILY
Hold Instructions: Resume on 05/19/24.
Discontinued
hydrochlorothiazide 25 MG tablet
25 mg PO DAILY
Discharge Orders:
Discharge Patient (As Directed); Ordered 05/16/24
Ordered By: Steve Singh
Discharge Date and Time
Discharge Date/Time: 05/16/24 11:59
Print Language: TELUGU
== END 2024-05-16 11:59 | disposition home or self-care (01) | DRG 640 ==
LOC: 3 WEST ACU 08:36
PROVIDERS: ADMITTING PHYSICIAN Hospitalist; CONSULT PHYSICIAN Internal Medicine Endocrinology, Diabetes & Metabolism; EMERGENCY PHYSICIAN Emergency Medicine
DX: E83.52 Hypercalcemia (principal); G93.41 Metabolic encephalopathy; E87.1 Hypo-osmolality and hyponatremia; E87.6 Hypokalemia; I10 Essential (primary) hypertension; E78.00 Pure hypercholesterolemia, unspecified; K21.9 Gastro-esophageal reflux disease without esophagitis; Z98.890 Other specified postprocedural states
CPT/HCPCS: 51701; 70450; 70496; 70498; 80048; 80053; 80061; 81003; 82306; 82330; 83935; 83970; 84300; 85025; 85027; 96360; 97116; 97166; 99285; Q9967

== ENCOUNTER 2025-06-14 11:21 | Inpatient (IN) | payer MEDICARE, SELFPAY ==
[2025-06-14] VITALS (14 sets, daily range): BP systolic 78–114; BP diastolic 52–70; BMI 25.2; BMI 22.2
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
[2025-06-14 08:48] LABS: Hematocrit 29.4 % (39.0-52.0); Hemoglobin 10.3 g/dL (13.0-18.0); Mean Corp Hgb Conc. 35.0 g/dL (33.0-37.0); Mean Corpuscular Volume 83.3 fL (80.0-94.0); Nucleated Red Blood Cells % 0 % (-); Platelet Count 252 10^3/uL (130-400); Red Cell Dist. Width 12.9 % (11.5-14.5)
[2025-06-14] MEDS: NSS 1000 IV ×3 (08:55→23:03)
[2025-06-14 09:03] LABS: ALT (SGPT) 16 U/L (0-50); AST (SGOT) 24 U/L (17-59); Albumin 4.5 g/dl (3.5-5.0); Alkaline Phosphatase 135 U/L (38-126); Blood Urea Nitrogen 11 mg/dl (9-20); Calcium 9.6 mg/dl (8.4-10.2); Carbon Dioxide 18 mmol/L (22-30); Chloride 84 mmol/L (98-107); Estimated Creatinine Clearance 57 ml/min; Glucose 203 mg/dl (70-99); Magnesium 2.5 mg/dl (1.6-2.3); Potassium 3.2 mmol/L (3.5-5.1); Sodium 119 mmol/L (135-145); Total Protein 6.9 g/dl (6.3-8.2); eGFR > 60.00
[2025-06-14 09:08] LABS: COVID-19 Antigen Negative (Negative)
[2025-06-14 09:35] LABS: Urine Character Clear (Clear)
[2025-06-14] MEDS: KCL ELIXIR 40 MEQ PO (09:59)
[2025-06-14 10:04] LABS: Urine Red Blood Cell 0-2 /HPF (0-2); Urine White Cell 0-2 /HPF (0-5)
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
--- NOTE | 2025-06-14 11:02 | CM ---
Met with patient at bedside in the ED
Primary Contact: Son/Johnny BARNEY # [phone]
Pharmacy verified: Dilan Re[facility] @ [address] [place]
Local Pharmacy: [facility] ([facility]) @ [address] [place] [address]
Family Physician verified: Dr Sol Belcher @ the [facility] @ [address] [place] [id number]
[place] ; Patient lives with his sonJohnny; multilevel home; 1 step to enter; his bedroom and bath on 1st floor; bath has tub w/ shower and grab bar
PLOF: reported he is independent with ambulation, stairs, and ADLs; currently not driving
NO DME
NO SNF or Home Health utilization history
Son will provide transport
Discharge plan to be determined; Still Operator Gin will monitor and support if/when needs identified
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
[2025-06-14 13:32] LABS: Glycohemoglobin (HgbA1c) 5.3 % (4.0-5.6)
[2025-06-14 15:08] LABS: Blood Urea Nitrogen 14 mg/dl (9-20); Calcium 8.3 mg/dl (8.4-10.2); Carbon Dioxide 22 mmol/L (22-30); Chloride 90 mmol/L (98-107); Estimated Creatinine Clearance 55 ml/min; Glucose 98 mg/dl (70-99); Magnesium 2.4 mg/dl (1.6-2.3); Potassium 3.9 mmol/L (3.5-5.1); Sodium 119 mmol/L (135-145); eGFR > 60.00
[2025-06-14] MEDS: LOVENOX 40 MG SC (16:50)
[2025-06-14] MEDS: TYLENOL 650 MG PO ×2 (16:50→23:03)
[2025-06-14 20:07] LABS: Blood Urea Nitrogen 16 mg/dl (9-20); Calcium 8.6 mg/dl (8.4-10.2); Carbon Dioxide 21 mmol/L (22-30); Chloride 92 mmol/L (98-107); Estimated Creatinine Clearance 45 ml/min; Glucose 106 mg/dl (70-99); Potassium 3.7 mmol/L (3.5-5.1); Sodium 118 mmol/L (135-145); eGFR > 60.00
--- NOTE | 2025-06-14 20:22 | PTCARENOTE ---
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
[2025-06-14] MEDS: LIPITOR 10 MG PO (20:48)
[2025-06-15 03:12] VITALS: BP 118/66
[2025-06-15] MEDS: TYLENOL PO ×2 (05:04→11:39)
[2025-06-15] MEDS: NIASPAN TIME RELEASE 1000 MG PO (07:59)
[2025-06-15] MEDS: VITAMIN C 1000 MG PO (08:00)
[2025-06-15] MEDS: PROTONIX 40 MG PO (08:00)
[2025-06-15] MEDS: NSS 1000 IV (08:01)
[2025-06-15] MEDS: FEOSOL 325 MG PO (08:01)
[2025-06-15] MEDS: VITAMIN D3 (cholecalciferol) 50 MCG PO (08:01)
[2025-06-15 08:20] VITALS: BP 123/65
[2025-06-15 08:34] LABS: Hematocrit 26.9 % (39.0-52.0); Hemoglobin 9.6 g/dL (13.0-18.0); Mean Corp Hgb Conc. 35.7 g/dL (33.0-37.0); Mean Corpuscular Volume 82.3 fL (80.0-94.0); Nucleated Red Blood Cells % 0 % (-); Platelet Count 207 10^3/uL (130-400); Red Cell Dist. Width 13.1 % (11.5-14.5)
[2025-06-15 08:39] LABS: Blood Urea Nitrogen 14 mg/dl (9-20); Calcium 9.4 mg/dl (8.4-10.2); Carbon Dioxide 19 mmol/L (22-30); Chloride 101 mmol/L (98-107); Estimated Creatinine Clearance 50 ml/min; Glucose 82 mg/dl (70-99); Magnesium 2.2 mg/dl (1.6-2.3); Potassium 4.2 mmol/L (3.5-5.1); Sodium 128 mmol/L (135-145); eGFR > 60.00
[2025-06-15 12:13] VITALS: BP 115/97
--- NOTE | 2025-06-15 12:24 | W.PN.NEPH.PH ---
Today's Communication / Plan
-
IV fluids
Assessment/Plan
-
Impression
Blackout episodes without loss of consciousness
Hypovolemic hyponatremia
Hypokalemia
Metabolic acidosis
Hypotension
History of essential hypertension on 3 drugs max dose
Plan
Urine studies and history support hypovolemia hyponatremia
Hypotension likely from medications
Holding antihypertensive drugs
Given improvement of blood pressure can hold IV fluids and encourage p.o. intake
Follow BMP
-
-
Date of Service: June 15, 2025
CC / HPI / ROS
-
Chief Complaint:
Hyponatremia
History of Present Illness:
Sodium up to 128 with saline
Blood pressure improved off medication
Potassium normal
Review of Systems:
No chest pain or shortness of breath
Labs
-
Labs:
WBC 13.8 10^3/uL (4.8-10.8) H 06/15/25 07:14
RBC 3.27 10^6/uL (4.70-6.10) L 06/15/25 07:14
Hgb 9.6 g/dL (13.0-18.0) L 06/15/25 07:14
Hct 26.9 % (39.0-52.0) L 06/15/25 07:14
Plt Count 207 10^3/uL (130-400) 06/15/25 07:14
eGFR > 60.00 06/15/25 07:14
Albumin 4.5 g/dl (3.5-5.0) 06/14/25 08:29
Physical Exam
-
Vital Signs:
Vital Signs
Temp Pulse Resp BP Pulse Ox
98.8 F 77 18 115/97 99
06/15/25 12:13 06/15/25 12:13 06/15/25 12:13 06/15/25 12:13 06/15/25 12:13
Cardiovascular:: Regular rate and rhythm
Respiratory:: Bilateral: CTA
Lung Excursion:: Normal
Abdomen:: Nontender and Soft
Bowel Sounds:: Normal
Extremity Edema:: None: Bilateral:
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
[2025-06-15] MEDS: TYLENOL 650 MG PO ×2 (13:00→17:18)
--- NOTE | 2025-06-15 13:14 | EEG.RPT ---
Electroencephalogram Report
Recording
Date of EE06/15/25
Type of EEG: Routine
Length of EEG recordin
Done with Video Recording: Yes
Patient Status: Inpatient
Recording Conditions: Awake
Hyperventilation Performed: No
Photic Stimulation Performed: Yes
Report
Clinical Background:�He is an 84 year old man with blackout episodes and short term memory loss.
Introduction: A routine bedside EEG was done using [employer] 10-20 electrode placement protocol.
Background: In the most alert state, the PDR is 9-10 Hz in frequency with normal amplitude. There is spontaneous variability and reactivity.�There is excessive theta activity in awake.
Sleep: Stage I and II sleep is seen.�
Focal/epileptiform: There were no focal or epileptiform discharges. No clinical or electrographic seizures occurred during this recording.
Photic stimulation: resulted in normal driving response. There was no photo myogenic or photoparoxysmal response.�
Impression: Excessive theta activity in awake. May represent generalized cerebral dysfunction or be a normal variant at this age.
[2025-06-15 15:23] LABS: Blood Urea Nitrogen 14 mg/dl (9-20); Calcium 9.2 mg/dl (8.4-10.2); Carbon Dioxide 19 mmol/L (22-30); Chloride 98 mmol/L (98-107); Estimated Creatinine Clearance 45 ml/min; Glucose 148 mg/dl (70-99); Magnesium 2.1 mg/dl (1.6-2.3); Potassium 4.0 mmol/L (3.5-5.1); Sodium 125 mmol/L (135-145); eGFR > 60.00
[2025-06-15 16:00] VITALS: BP 106/68
[2025-06-15] MEDS: LOVENOX 40 MG SC (17:17)
[2025-06-15 20:21] VITALS: BP 104/58
[2025-06-15 23:12] VITALS: BP 118/69
[2025-06-16] VITALS (8 sets, daily range): BP systolic 103–130; BP diastolic 58–68
[2025-06-16] MEDS: TYLENOL 650 MG PO ×5 (00:14→23:12)
[2025-06-16] MEDS: NIASPAN TIME RELEASE 1000 MG PO (07:37)
[2025-06-16] MEDS: PROTONIX 40 MG PO (07:37)
[2025-06-16] MEDS: VITAMIN D3 (cholecalciferol) 50 MCG PO (07:38)
[2025-06-16] MEDS: VITAMIN C 1000 MG PO (07:38)
[2025-06-16] MEDS: FEOSOL 325 MG PO (07:38)
[2025-06-16 09:17] LABS: Blood Urea Nitrogen 13 mg/dl (9-20); Calcium 9.0 mg/dl (8.4-10.2); Carbon Dioxide 20 mmol/L (22-30); Chloride 99 mmol/L (98-107); Estimated Creatinine Clearance 45 ml/min; Glucose 82 mg/dl (70-99); Magnesium 1.9 mg/dl (1.6-2.3); Potassium 3.7 mmol/L (3.5-5.1); Sodium 126 mmol/L (135-145); eGFR > 60.00
--- NOTE | 2025-06-16 11:51 | CM ---
CM reviewed chart, patient seen bedside. TT to Hospital for PT evaluations. Patient confirms his son will provide transportation home upon discharge. IMM verbally reviewed, patient declining need for copy, placed in chart. CM will continue to follow
for all discharge planning needs.
Plan; home no needs, watch for therapy recommendations
--- NOTE | 2025-06-16 13:04 | W.PN.NEPH.PH ---
Today's Communication / Plan
-
bmp 1600
Assessment/Plan
-
Impression
Blackout episodes without loss of consciousness
Hypovolemic hyponatremia
Hypokalemia
Metabolic acidosis
Hypotension
History of essential hypertension on 3 drugs max dose
Plan
Urine studies and history support hypovolemia hyponatremia
Hypotension likely from medications
Sodium 126 improved
Patient insisting on going home today
Follow BMP/recheck later today as patient is a chronic hyponatremia= 72 oz mountain due daiy
-
-
Date of Service: June 16, 2025
CC / HPI / ROS
-
Chief Complaint:
Hyponatremia
History of Present Illness:
Sodium up to 128 with saline
Blood pressure improved off medication
Potassium normal
Review of Systems:
No chest pain or shortness of breath
Labs
-
Labs:
WBC 13.8 10^3/uL (4.8-10.8) H 06/15/25 07:14
RBC 3.27 10^6/uL (4.70-6.10) L 06/15/25 07:14
Hgb 9.6 g/dL (13.0-18.0) L 06/15/25 07:14
Hct 26.9 % (39.0-52.0) L 06/15/25 07:14
Plt Count 207 10^3/uL (130-400) 06/15/25 07:14
Sodium 126 mmol/L (135-145) L 06/16/25 07:05
Potassium 3.7 mmol/L (3.5-5.1) 06/16/25 07:05
Chloride 99 mmol/L (98-107) 06/16/25 07:05
Carbon Dioxide 20 mmol/L (22-30) L 06/16/25 07:05
BUN 13 mg/dl (9-20) 06/16/25 07:05
Creatinine 1.1 mg/dL (0.7-1.3) 06/16/25 07:05
eGFR > 60.00 06/16/25 07:05
Glucose 82 mg/dl (70-99) 06/16/25 07:05
Calcium 9.0 mg/dl (8.4-10.2) 06/16/25 07:05
Phosphorus 3.7 mg/dl (2.5-4.5) 06/16/25 07:05
Albumin 4.5 g/dl (3.5-5.0) 06/14/25 08:29
Physical Exam
-
Vital Signs:
Vital Signs
Temp Pulse Resp BP Pulse Ox
97.9 F 55 20 103/58 98
06/16/25 11:17 06/16/25 11:17 06/16/25 11:17 06/16/25 11:17 06/16/25 11:17
Cardiovascular:: Regular rate and rhythm
Respiratory:: Bilateral: CTA
Lung Excursion:: Normal
Abdomen:: Nontender and Soft
Bowel Sounds:: Normal
Extremity Edema:: None: Bilateral:
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
[2025-06-16] MEDS: LOVENOX 40 MG SC (17:04)
[2025-06-16] MEDS: LIPITOR 10 MG PO (19:42)
[2025-06-16 19:43] LABS: Blood Urea Nitrogen 15 mg/dl (9-20); Calcium 9.2 mg/dl (8.4-10.2); Carbon Dioxide 18 mmol/L (22-30); Chloride 99 mmol/L (98-107); Estimated Creatinine Clearance 45 ml/min; Glucose 138 mg/dl (70-99); Potassium 3.6 mmol/L (3.5-5.1); Sodium 125 mmol/L (135-145); eGFR > 60.00
[2025-06-17 02:57] VITALS: BP 124/62
[2025-06-17] MEDS: TYLENOL 650 MG PO (06:18)
[2025-06-17 08:00] VITALS: BP 132/63
[2025-06-17 08:46] LABS: Blood Urea Nitrogen 14 mg/dl (9-20); Calcium 8.9 mg/dl (8.4-10.2); Carbon Dioxide 21 mmol/L (22-30); Chloride 99 mmol/L (98-107); Estimated Creatinine Clearance 62 ml/min; Glucose 91 mg/dl (70-99); Magnesium 1.6 mg/dl (1.6-2.3); Potassium 3.4 mmol/L (3.5-5.1); Sodium 127 mmol/L (135-145); eGFR > 60.00
[2025-06-17] MEDS: PROTONIX 40 MG PO (08:55)
[2025-06-17] MEDS: NIASPAN TIME RELEASE 1000 MG PO (08:55)
[2025-06-17] MEDS: VITAMIN C 1000 MG PO (08:55)
[2025-06-17] MEDS: VITAMIN D3 (cholecalciferol) 50 MCG PO (08:56)
[2025-06-17] MEDS: FEOSOL 325 MG PO (08:56)
[2025-06-17] MEDS: KCL 40 MEQ PO (10:27)
[2025-06-17] MEDS: TYLENOL PO (11:24)
--- NOTE | 2025-06-17 12:10 | CM ---
Addendum entered by Jamilah Yan 06/17/25 13:12:
Patient confirms son and cousin, Freddy, will both help transport patient home and get in house when d/c.
Original Note:
CM reviewed chart, patient seen bedside. CM discussed therapy recommendations of SNF. Patient not agreeable to rehab, is agreeable to home therapy services, referral [facility], TT to Michelle, liaison, with referral. Patient confirms he has transportation
home from his son, per Physician, patient should no longer drive. CM left for patients sonJohnny. CM will continue to follow for all discharge planning needs.
Plan; home with referral to [facility]
--- NOTE | 2025-06-17 12:45 | VNURNOTE ---
Home Health Liaison met with patient at bedside to discuss [facility] nurse/therapy, visits, schedule and homebound status. Patient is agreeable and understands that visits at home will be 2-3 x per week to assess and teach medical management.
Patient is aware that [facility] will contact them for start of care in 1-2 days after discharge from . Provided contact number for [facility].
[facility] referral completed in [facility].
[2025-06-17 12:50] VITALS: BP 137/69
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
--- NOTE | 2025-06-17 14:45 | W.PN.NEPH.PH ---
Today's Communication / Plan
-
Outpatient 72 oz [place] due daisulma = strongly advised to decrease that to 48 ounces
Okay to discharge from renal standpoint
Assessment/Plan
-
Impression
Blackout episodes without loss of consciousness
Hypovolemic hyponatremia
Hypokalemia
Metabolic acidosis
Hypotension
History of essential hypertension on 3 drugs max dose
Plan
Urine studies and history support hypovolemia hyponatremia
Hypotension likely from medications
Sodium 127 improved near baseline
Patient insisting on going home today
Outpatient 72 oz [facility] due daiy = strongly advised to decrease that to 48 ounces
Okay to discharge from renal standpoint
-
-
Date of Service: June 17, 2025
CC / HPI / ROS
-
Chief Complaint:
Hyponatremia
History of Present Illness:
Sodium up to 128 with saline
Blood pressure improved off medication
Potassium normal
Review of Systems:
No chest pain or shortness of breath
Labs
-
Labs:
WBC 13.8 10^3/uL (4.8-10.8) H 06/15/25 07:14
RBC 3.27 10^6/uL (4.70-6.10) L 06/15/25 07:14
Hgb 9.6 g/dL (13.0-18.0) L 06/15/25 07:14
Hct 26.9 % (39.0-52.0) L 06/15/25 07:14
Plt Count 207 10^3/uL (130-400) 06/15/25 07:14
Sodium 127 mmol/L (135-145) L 06/17/25 07:34
Potassium 3.4 mmol/L (3.5-5.1) L 06/17/25 07:34
Chloride 99 mmol/L (98-107) 06/17/25 07:34
Carbon Dioxide 21 mmol/L (22-30) L 06/17/25 07:34
BUN 14 mg/dl (9-20) 06/17/25 07:34
Creatinine 0.8 mg/dL (0.7-1.3) 06/17/25 07:34
eGFR > 60.00 06/17/25 07:34
Glucose 91 mg/dl (70-99) 06/17/25 07:34
Calcium 8.9 mg/dl (8.4-10.2) 06/17/25 07:34
Phosphorus 3.8 mg/dl (2.5-4.5) 06/17/25 07:34
Albumin 4.5 g/dl (3.5-5.0) 06/14/25 08:29
Physical Exam
-
Vital Signs:
Vital Signs
Temp Pulse Resp BP Pulse Ox
98.4 F 69 16 137/69 99
06/17/25 12:50 06/17/25 12:50 06/17/25 12:50 06/17/25 12:50 06/17/25 12:50
Cardiovascular:: Regular rate and rhythm
Respiratory:: Bilateral: CTA
Lung Excursion:: Normal
Abdomen:: Nontender and Soft
Bowel Sounds:: Normal
Extremity Edema:: None: Bilateral:
--- NOTE | 2025-06-17 15:58 | PTCARENOTE ---
Pt discharged with all belongings present.
== END 2025-06-17 16:06 | disposition home health service (06) | DRG 640 ==
LOC: 4 WEST ACU 11:21
PROVIDERS: Internal Medicine Nephrology; Student in an Organized Health Care Education/Training Program; ADMITTING PHYSICIAN Internal Medicine; CONSULT PHYSICIAN Specialist; EMERGENCY PHYSICIAN Emergency Medicine; FAMILY PHYSICIAN Family Medicine
DX: E87.1 Hypo-osmolality and hyponatremia (principal); G93.41 Metabolic encephalopathy; E87.6 Hypokalemia; E21.2 Other hyperparathyroidism; E78.00 Pure hypercholesterolemia, unspecified; I10 Essential (primary) hypertension; I49.5 Sick sinus syndrome; E86.1 Hypovolemia; R73.9 Hyperglycemia, unspecified; D50.9 Iron deficiency anemia, unspecified; E87.20 Acidosis, unspecified; I95.2 Hypotension due to drugs; T46.5X5A Adverse effect of other antihypertensive drugs, initial encounter; K21.9 Gastro-esophageal reflux disease without esophagitis; Z95.0 Presence of cardiac pacemaker; Z88.0 Allergy status to penicillin; Z79.899 Other long term (current) drug therapy; Z88.1 Allergy status to other antibiotic agents; Z11.52 Encounter for screening for COVID-19
CPT/HCPCS: 70450; 71046; 80048; 80053; 81003; 81015; 82570; 83036; 83735; 83935; 84100; 84156; 84300; 84443; 85025; 87502; 87811; 93005; 95816; 96360; 96361; 97163; 97167; 99285

== ENCOUNTER 2025-06-18 20:19 | Emergency (ER) | payer MEDICARE, OTHER, SELFPAY ==
[2025-06-18 20:23] VITALS: BP 140/76
[2025-06-18 22:44] VITALS: BP 141/73
[2025-06-18 23:00] VITALS: BP 145/73
--- NOTE | 2025-06-18 23:01 | ED.GENMED ---
History of Present Illness
General
Chief Complaint: Allergic Reaction
Time Seen by Provider: 06/18/25 22:52
History of Present Illness
History of Present Illness:
84-year-old male presents to the emergency department for evaluation of a mildly itchy rash to both inner thighs that began 1 hour ago. The patient was admitted to this hospital for hyponatremia and discharged from ER hours ago. No new soaps or
detergents have been used, he was discontinued from 2 of his antihypertensives due to hypotension. Patient offers no complaints secondary to cognitive dysfunction
Past History
Past History
ED Past Medical History: GERD, HTN, Hypercholesterolemia and Other (Hyperparathyroidism, hypercalcemia; chronic low back pain); Negative Cancer
ED Past Surgical History: Other (Parathyroidectomy May 13, 2024 at [facility])
Social History
Tobacco: Non-smoker
Alcohol: None
Personal:
Living: with family
Employment: Retired
Family History
Family History: Other (Noncontributory)
Review of Systems
Review of Systems
Allergies reviewed?: Yes
All Other Systems: ROS reviewed and negative except as documented in HPI and ROS
Phy Exam
Physical Exam
Physical Exam:
GEN: Well appearing, NAD, WDWN
HEENT: Oral mucosa moist, no scleral icterus
Cardiac: Regular rate
Lung: No respiratory distress, no tachypnea
MSK: No gross deformity or injuries
Skin: Good color, no pallor or jaundice, faint urticarial lesions to both inner thighs, no petechial
Neuro: AO x3, moves all extremities freely
Psych: Calm, cooperative
Course
Orders/Labs/Results
Orders:
Orders
06/18/25 23:00
Diphenhydramine [Benadryl] 12.5 mg IM NOW STA
Vital Signs
Initial and Last Documented VS:
Initial Vital Signs
Temp Pulse Resp BP Pulse Ox
97.9 F 70 16 140/76 97
06/18/25 20:23 06/18/25 20:23 06/18/25 20:23 06/18/25 20:23 06/18/25 20:23
Last Documented Vital Signs
Temp Pulse Resp BP Pulse Ox
97.9 F 70 23 138/72 97
06/18/25 20:23 06/19/25 00:00 06/19/25 00:00 06/19/25 00:00 06/18/25 23:01
MDM/Problems Addressed
MDM/Problems Addressed:
Patient's unclear trigger however lesions improved after administration of antihistamines, will discharge in stable condition
*Pulse Oximetry
SaO2: 97
Oxygen Mode of Delivery: Room air
Patient hypoxic: no
*Critical Care Note
Total Time (30-74mins, 75-104mins- exclusive of procedures): Not Applicable
ED Attending Note
-
Portions of this chart may have been created with voice recognition software.� Occasional wrong word or��sound alike� substitutions may have occurred due to the inherent limitations of voice recognition software.
Discharge Plan
Departure
Patient Disposition: Home (Routine Discharge)
Date of Disposition: 06/18/25
Time of Disposition: 23:53
Patient with high blood pressure during this ER visit?: No
Discharge Problem:
Urticaria
Instructions: Hives (DC)
Prescriptions:
No Action
flaxseed oil 1,000 MG capsule
1,400 mg PO DAILY
green tea leaf extract 250 MG capsule
315 mg PO BID
coenzyme Q10 [Co Q-10] 100 MG capsule
300 mg PO DAILY
cinnamon bark [Cinnamon] 500 MG capsule
1,400 mg PO DAILY
astragalus root [Astragalus] 470 MG capsule
500 mg PO BID
red yeast rice 600 MG capsule
600 mg PO BID
milk thistle 500 MG capsule
1,000 mg PO BID
niacin 100 MG tablet
1,000 mg PO DAILY
ascorbic acid (vitamin C) [Vitamin C] 500 MG tablet
1,000 mg PO DAILY
amlodipine [Norvasc] 10 MG tablet
10 mg PO DAILY
losartan [Cozaar] 100 MG tablet
100 mg PO DAILY
magnesium oxide 250 mg magnesium Tablet
225 mg PO BID
atorvastatin 20 mg Tablet
10 mg PO Q48H
therapeutic multivitamin Tablet
1 tab PO DAILY
acetaminophen 650 mg Tablet Extended Release
1,300 mg PO Q12
garlic 1,000 mg Capsule
2,000 mg PO DAILY
zinc sulfate 50 mg zinc (220 mg) Tablet
50 mg PO DAILY
ferrous sulfate 28 mg iron Tablet
56 mg PO DAILY
omeprazole 20 mg Tablet,Delayed Release (Dr/Ec)
20 mg PO DAILY
cholecalciferol (vitamin D3) [Vitamin D3] 50 mcg (2,000 unit) Tablet
50 mcg PO DAILY
omega 6-bus-wes-fish oil [Fish Oil] 1,000 (120-180) mg Capsule
1 cap PO BID
Glucosamine Chondroitin 550-30-1 mg Capsule
1 cap PO BID
Referrals:
UNKNOWN - PT DOES,NOT KNOW [Family Provider]
Activity Restrictions/Additional Instructions:
Jeremie should take 10mg of over the counter cetirizine (Zyrtec) or 180mg of fexofenadine (Taylor) once daily for hives
Interventions
Interventions:
*Risk Screen - Suicide Last Done: 06/18/25 20:23
*General Assessment Last Done: 06/18/25 20:23
*Neglect/Abuse Screening Last Done: 06/18/25 20:23
*ED- Fall Risk Assessment Last Done: 06/18/25 22:45
*ED COVID-19 Vaccine History Last Done: 06/18/25 22:45
*Nursing Disposition Last Done: 06/19/25 00:20
ED- Cardiac Assessment Last Done: 06/18/25 23:10
ED- Pulmonary Assessment Last Done: 06/18/25 23:10
ED-Skin Assessment Last Done: 06/18/25 23:10
Discharge Date and Time
Discharge Date/Time: 06/19/25 00:20
Print Language: UKRAINIAN
[2025-06-18] MEDS: BENADRYL 12.5 MG IM (23:10)
[2025-06-18 23:20] VITALS: BMI 22.1
[2025-06-19] VITALS: BP 138/72
== END 2025-06-19 00:20 | disposition home or self-care (01) ==
LOC: EMR 20:19
PROVIDERS: EMERGENCY PHYSICIAN Emergency Medicine
DX: L50.9 Urticaria, unspecified (principal); E78.00 Pure hypercholesterolemia, unspecified; I10 Essential (primary) hypertension
CPT/HCPCS: 96372; 99284

== ENCOUNTER 2025-07-09 05:38 | Inpatient (IN) | payer MEDICARE, OTHER, SELFPAY ==
[2025-07-09] VITALS (9 sets, daily range): BP systolic 133–163; BP diastolic 66–89; BMI 22.5; BMI 22.8
--- NOTE | 2025-07-09 01:51 | ED.GENMED ---
History of Present Illness
General
Chief Complaint: Change in Mental Status
Source: patient, records and family
Exam Limitations: none
Time Seen by Provider: 07/09/25 01:42
Nursing documentation reviewed up to this point in time: agreed with
History of Present Illness
History of Present Illness:
84-year-old male with a past medical history of hypertension, hyperlipidemia, GERD, hypoparathyroidism status post parathyroidectomy, sick sinus syndrome status post pacemaker who presents to the emergency department with his son for evaluation of
weakness and confusion. Of note patient was admitted last month for weakness and lightheadedness found to have severe hyponatremia. Patient reports that over the past 24 hours he has become increasingly weak and very shaky. His son says that he
was extremely tremulous this evening and mildly confused throughout the day. He says that this is similar to how he was feeling prior to admission in May, family brought him to the ER to be assessed. He has not had any pain anywhere�denies any
headache, chest pain, abdominal pain, back pain. He denies any shortness of breath or coughing. He has not noticed any fever although he has had the chills. He reports frequent urination but says this is a chronic issue not necessarily acutely
changed has not had any dysuria or hematuria.
Past History
Past History
ED Past Medical History: GERD, HTN, Hypercholesterolemia and Other (Hyperparathyroidism, hypercalcemia; chronic low back pain); Negative Cancer
ED Past Surgical History: Other (Parathyroidectomy May 13, 2024 at [facility])
Social History
Tobacco: Non-smoker
Alcohol: None
Personal:
Living: with family
Employment: Retired
Family History
Family History: Other (Noncontributory)
Review of Systems
Review of Systems
All Other Systems: ROS reviewed and negative except as documented in HPI and ROS
Constitutional: Reports fatigue and chills; Denies fever
EENT: Denies sore throat or runny nose
Respiratory: Denies cough or trouble breathing
Cardiac: Denies chest pain
ABD/GI: Denies abdominal pain, nausea, vomiting or diarrhea
: Reports frequency; Denies dysuria or flank pain
Musculoskeletal: Denies neck pain or back pain
Neurological: Reports weakness (Generally weak); Denies dizzy or headache
Phy Exam
Physical Exam
Physical Exam:
General: Awake, alert, oriented x3; no acute distress
Head: Normocephalic, atraumatic
Eyes: Conjunctiva normal, pupils equal round and reactive to light bilaterally
Throat: Airway intact, handling secretions
Neck: Trachea midline, supple without meningismus
Lungs: Clear to auscultation bilaterally, no wheezing, rales, rhonchi
Heart: Regular rate and rhythm, systolic murmur noted
Abd: Soft, non distended, nontender
Neuro: Mildly tremulous, cranial nerves intact, speech fluid, motor and sensory intact in all extremities
Skin: No rash noted
Extremities: +1 pitting edema in the legs bilaterally, equal pulses in all extremities
Scores
Heart Failure Risk
Heart Failure Risk Score: Not Applicable
Heart Score for Chest Pain Patients
STEMI patient?: Not applicable
Withdrawal Assessment of Alcohol
Withdrawal Assessment Completed?: Not applicable
Course
Orders/Labs/Results
Orders:
Orders
07/09/25 01:43
Electrocardiogram (*1) Urgent
Reason for Study: Fatigue / Weakness
EKG- Treatment ONCE
CR Chest - 2 Views Urgent
Reason For Exam: weak, fever
07/09/25 01:55
COVID-19 Antigen Urgent
Source: Nasal Swab
CPK [Creatine Phosphokinase] Urgent
Complete Blood Count/With Diff Urgent
Comprehensive Metabolic Panel Urgent
Lactate Level [Lactic Acid] Urgent
TSH Reflex To Free T4 Urgent
Influenza A+B Rapid Molecular Urgent
KATHERYN Source: Nasal Swab
Specimen Description:
07/09/25 02:06
Blood Culture Q30M
KATHERYN Source: Blood/Venous
Specimen Description:
Blood Culture Q30M
KATHERYN Source: Blood/Venous
Specimen Description:
07/09/25 02:08
Osmolality, Random Urine Urgent
Date Specimen was Collected: 07/09/25
Time Specimen was Collected: 02:06
Urinalysis Reflex To Culture Urgent
Date Specimen was Collected: 07/09/25
Time Specimen was Collected: 02:06
Urine Microscopic Reflex Cult Urgent
Urine Sodium Urgent
Date Specimen was Collected: 07/09/25
Time Specimen was Collected: 02:06
Urine Culture Urgent
KATHERYN Source: U
Specimen Description:
Date Specimen was Collected: 07/09/25
Time Specimen was Collected: 02:06
07/09/25 02:33
Interrogate Pacemaker- Treatment ONCE
07/09/25 03:22
CT Head W/o Iv Contrast Urgent
Comment:
Reason For Exam: confusion
07/09/25 03:30
Acetaminophen [Tylenol] 650 mg PO NOW STA
07/09/25 03:32
Ciprofloxacin 400 mg/[id number] [Cipro 400 mg] 200 ml IV NOW
Abnormal Lab Results
07/09/25 07/09/25
01:55 02:08
WBC 16.0 H 10^3/uL
(4.8-10.8)
RBC 3.43 L 10^6/uL
(4.70-6.10)
Hgb 9.9 L g/dL
(13.0-18.0)
Hct 30.2 L %
(39.0-52.0)
MCHC 32.8 L g/dL
(33.0-37.0)
Abs Immat Gran (auto) 0.1 H 10^3/uL
(0-0.05)
Absolute Neuts (auto) 14.3 H 10^3/uL
(1.4-6.5)
Absolute Lymphs (auto) 0.8 L 10^3/uL
(1.2-3.4)
Neutrophils % 89.6 H %
(42.2-75.2)
Lymphocytes % 5.2 L %
(20.5-51.1)
Sodium 133 L mmol/L
(135-145)
Carbon Dioxide 21 L mmol/L
(22-30)
Alkaline Phosphatase 189 H U/L
(38-126)
Creatine Kinase 54 L U/L
(55-170)
Urine Ketones 2+ A
(Negative)
Leukocyte Esterase Rfl 1+ A
(Negative)
Urine Bacteria (Reflex) Few A
(Negative)
Urine Albumin (Reflex) 3+ A
(Neg - Trace)
07/09/25 01:55
07/09/25 01:55
Vital Signs
Initial and Last Documented VS:
Initial Vital Signs
Temp Pulse Resp BP Pulse Ox
37.6 C 89 28 163/89 100
07/09/25 01:35 07/09/25 01:35 07/09/25 01:35 07/09/25 01:35 07/09/25 01:35
Last Documented Vital Signs
Temp Pulse Resp BP Pulse Ox
38.1 C H 72 18 153/74 97
07/09/25 03:29 07/09/25 03:00 07/09/25 03:00 07/09/25 02:01 07/09/25 03:00
MDM/Problems Addressed
Differential Diagnosis Includes:
Wide differential diagnosis includes but not limited to: Electrolyte derangement, infection including UTI or pneumonia, dehydration, polypharmacy, normal pressure hydrocephalus; nothing to suggest stroke at this point
MDM/Problems Addressed:
84-year-old male presents for evaluation of generalized weakness, mild confusion and tremulousness today. He says he has similar symptoms from 'low salt' last month. Hypertensive and mildly tachypneic, otherwise normal vitals. Physical exam is as
above. Will plan to check labs including a CBC and a CMP, thyroid studies. Check viral swabs, urinalysis, chest x-ray. Will check an EKG. Will monitor very closely reassess after the above. Right now his exam is nonfocal just globally weak and
intermittently mildly confused�low suspicion for intracranial emergency will hold off on head imaging for now. Monitor closely reassess after the above.
Labs reviewed: CBC shows leukocytosis to 16, stable anemia with a hemoglobin of 9.9. With leukocytosis and tachypnea added lactate and blood cultures. His chemistry shows marginal hyponatremia with a sodium of 133, no clinically significant
abnormalities. His COVID and flu swabs are negative. Chest x-ray reviewed by me shows no acute disease. Awaiting results of urinalysis. Vital signs stable.
Urinalysis few bacteria no significant pyuria and squamous cells suggest that is contaminated sample. Not clearly consistent with infection although in the context of symptoms and leukocytosis I think reasonable to treat with antibiotics. Culture
sent off. He does seem a bit more confused on reassessment�for example, asking for me to put the [id number] game on in the middle of the night on Saturday. Will proceed with CT head.
Patient spiked low-grade fever treated with Tylenol. Ultimately will plan for admission pending CT head will follow urine and blood cultures.
Reviewed CT head no acute abnormalities�final radiology report pending. Discussed case with hospitalist to facilitate admission.
*Pulse Oximetry
SaO2: 100
Oxygen Mode of Delivery: Room air
Patient hypoxic: no (100%)
*EKG
Interpreted by ED Provider?: Yes
Heart Rate: 71
Rhythm: other (Atrial paced rhythm)
*Critical Care Note
Total Time (30-74mins, 75-104mins- exclusive of procedures): Not Applicable
Data Reviewed
Review of Other/Old Records Reveals: Labs, Records and Discharge Summary
Source: patient, records and family
Patient Management
Discussion with other providers: Hospitalist (Discussed with hospitalist)
Escalation/DeEscalation of care consider admission/obs:
Admission indicated
ED Attending Note
-
Portions of this chart may have been created with voice recognition software.� Occasional wrong word or��sound alike� substitutions may have occurred due to the inherent limitations of voice recognition software.
Discharge Plan
Departure
Patient Disposition: Admit
Date of Disposition: 07/09/25
Time of Disposition: 03:44
Admit to doctor: Abdi
Presentation/result/management discussed w/ accepting MD/DO: Hospitalist
Discharge Problem:
Encephalopathy, Acute UTI
Prescriptions:
No Action
flaxseed oil 1,000 MG capsule
1,400 mg PO DAILY
green tea leaf extract 250 MG capsule
315 mg PO BID
coenzyme Q10 [Co Q-10] 100 MG capsule
300 mg PO DAILY
cinnamon bark [Cinnamon] 500 MG capsule
1,400 mg PO DAILY
astragalus root [Astragalus] 470 MG capsule
500 mg PO BID
red yeast rice 600 MG capsule
600 mg PO BID
milk thistle 500 MG capsule
1,000 mg PO BID
niacin 100 MG tablet
1,000 mg PO DAILY
ascorbic acid (vitamin C) [Vitamin C] 500 MG tablet
1,000 mg PO DAILY
amlodipine [Norvasc] 10 MG tablet
10 mg PO DAILY
losartan [Cozaar] 100 MG tablet
100 mg PO DAILY
magnesium oxide 250 mg magnesium Tablet
225 mg PO BID
atorvastatin 20 mg Tablet
10 mg PO Q48H
therapeutic multivitamin Tablet
1 tab PO DAILY
acetaminophen 650 mg Tablet Extended Release
1,300 mg PO Q12
garlic 1,000 mg Capsule
2,000 mg PO DAILY
zinc sulfate 50 mg zinc (220 mg) Tablet
50 mg PO DAILY
ferrous sulfate 28 mg iron Tablet
56 mg PO DAILY
omeprazole 20 mg Tablet,Delayed Release (Dr/Ec)
20 mg PO DAILY
cholecalciferol (vitamin D3) [Vitamin D3] 50 mcg (2,000 unit) Tablet
50 mcg PO DAILY
omega [id number]-fish oil [Fish Oil] 1,000 (120-180) mg Capsule
1 cap PO BID
Glucosamine Chondroitin 550-30-1 mg Capsule
1 cap PO BID
Referrals:
UNKNOWN - PT DOES,NOT KNOW [Family Provider]
Interventions
Interventions:
*Risk Screen - Suicide Last Done: 07/09/25 01:35
*General Assessment Last Done: 07/09/25 01:35
*Neglect/Abuse Screening Last Done: 07/09/25 01:35
*ED- Fall Risk Assessment Last Done: 07/09/25 01:35
*ED COVID-19 Vaccine History Last Done: 07/09/25 01:35
ED- Pulmonary Assessment Last Done: 07/09/25 01:58
ED- Neurological Assessment Last Done: 07/09/25 01:58
ED- Cardiac Assessment Last Done: 07/09/25 01:58
Discharge Date and Time
Print Language: DJIBOUTIAN
[2025-07-09 02:20] LABS: COVID-19 Antigen Negative (Negative); Hematocrit 30.2 % (39.0-52.0); Hemoglobin 9.9 g/dL (13.0-18.0); Mean Corp Hgb Conc. 32.8 g/dL (33.0-37.0); Mean Corpuscular Volume 88.0 fL (80.0-94.0); Nucleated Red Blood Cells % 0 % (-); Platelet Count 263 10^3/uL (130-400); Red Cell Dist. Width 13.8 % (11.5-14.5)
[2025-07-09 02:25] LABS: ALT (SGPT) 17 U/L (0-50); AST (SGOT) 24 U/L (17-59); Albumin 4.4 g/dl (3.5-5.0); Alkaline Phosphatase 189 U/L (38-126); Blood Urea Nitrogen 10 mg/dl (9-20); Calcium 9.7 mg/dl (8.4-10.2); Carbon Dioxide 21 mmol/L (22-30); Chloride 102 mmol/L (98-107); Glucose 78 mg/dl (70-99); Potassium 4.2 mmol/L (3.5-5.1); Sodium 133 mmol/L (135-145); Total Protein 7.2 g/dl (6.3-8.2); eGFR > 60.00
[2025-07-09 03:05] LABS: Urine Character Clear (Clear)
[2025-07-09 03:18] LABS: Urine Red Blood Cell 0-2 /HPF (0-2)
[2025-07-09] MEDS: CIPRO 400 MG 200 IV ×2 (03:39→16:17)
[2025-07-09] MEDS: TYLENOL 650 MG PO (03:43)
--- NOTE | 2025-07-09 04:59 | HPS.HSE ---
Family Physician
-
Family Physician: NOT KNOW UNKNOWN - PT DOES
Chief Complaint
-
Weakness / Confusion
History of Present Illness
Patient is an 84y M with PMH significant for hypertension, SSS s/p PPM and hyperparathyroidism who presents to ED for evaluation of weakness and confusion. Patient was brought in by son who reports increased weakness / confusion over the past 24
hours. Patient was last hospitalized 06/14 - 06/17 with similar presentation and found to be hyponatremic at that time. Patient was noted to be very shaky / tremulous this evening.
Patient denies any pain. He denies N/V/D. He complains of cough that he thinks started this AM and is coughing small amounts of white mucus into an emesis bag during my exam.
He reports frequent urination, but notes that this is chronic and unchanged. He denies any dysuria, flank pain, hematuria, etc.
Medical History
Past Medical History
Past Medical History: Reports Other
Additional Past Medical History:
Hyperparathyroidism
Hypertension
SSS
Iron Deficiency Anemia
GERD
Suspected Dementia
Past Surgical History: Reports Other
Additional Past Surgical History:
PPM Placement
PPM Revision / Relocation (L sided wires remain in place)
Parathyroidectomy
Social History
Tobacco: Non-smoker
Alcohol: None
Drug: None
Family History
Family History: Not pertinent
Allergies / Home Medications
Allergies reflects when Allergies were last updated in [employer].
Home Medications with original date entered in [employer]
Allergy/Medication List:
Unable to confirm current med list due to confusion.
If medication reconciliation has not been performed, why?: Dementia
Review of Systems
-
Unable to obtain full review of systems at this time due to: Dementia
Constitutional: Reports Fatigue
Respiratory: Reports Cough
Cardiac: Denies Chest Pain
Abdomen/GI: Denies Abdominal Pain, Nausea or Vomiting
: Reports Frequency; Denies Dysuria
Musculoskeletal: Denies Joint Pain
Neurological: Denies Headache
Physical Exam
Vital Signs
Vital Signs
Temp Pulse Resp BP Pulse Ox
100.6 F H 72 18 153/74 97
07/09/25 03:29 07/09/25 03:00 07/09/25 03:00 07/09/25 02:01 07/09/25 03:00
Physical Exam
General: Other (84y M in no acute distress.)
HEENT: Moist mucous membranes and PERRLA
Respiratory: Clear; No Wheezes, Rales or Rhonchi
Cardiac: S1/S2, Regular Rhythm and Murmur (III/ STEPHANY)
GI: Soft, Non Tender, Non Distended and Normal Bowel Sounds
Musculoskeletal: No Clubbing, No Cyanosis and Other (1+ pitting edema b/l LEs.)
Neuro: Awake, Alert and Nonfocal/grossly intact; No Oriented
Laboratory Results
-
07/09/25 01:55
07/09/25 01:55
Laboratory Results
Lactic Acid 1.1 mmol/L (0.7-2.0) 07/09/25 01:55
Total Bilirubin 0.7 mg/dl (0.2-1.3) 07/09/25 01:55
AST 24 U/L (17-59) 07/09/25 01:55
ALT 17 U/L (0-50) 07/09/25 01:55
Alkaline Phosphatase 189 U/L (38-126) H 07/09/25 01:55
Impression/Plan
-
A/P: Patient is an 84y M with PMH significant for hypertension, SSS and suspected dementia who presents to ED for evaluation of weakness and confusion for the past 24 hours.
Fever / Suspected Sepsis
Acute TME secondary to the above
- Admit for further evaluation and treatment.
- Patient presents with fever and leukocytosis. Potential sources include pulmonary and urinary and other.
- Chronic urinary frequency. UA is equivocal / under-whelming.
- Patient reports cough and has noted mucus production. CXR is unremarkable.
- Continue current abx for now pending culture data (Cipro started in the ED due to PCN / ceph allergies).
- COVID / flu negative.
- Follow fever curve and monitor or any new / focal symptoms or complaints.
Chronic Hyponatremia
- Stable. Current Na level appears at his known baseline.
- Recent admission for severe / acute hyponatremia and this remains improved.
- Remain off of HCTZ.
- Fluid restriction.
Benign Hypertension
- BP elevated in the ED. Recent med changes noted including discontinuing HCTZ and holding amlodipine.
- Continue losartan / resume amlodipine.
- Adjust med regimen as needed for adequate control.
Chronic Iron Deficiency Anemia
- Stable. Hgb is at / near known baseline.
- Continue iron supplementation.
Suspected Dementia
- Noted confusion / memory impairment during recent admission.
- CT head today with no acute abnormality - but noted diffuse volume loss.
- Likely some acute confusion due to fever / infection - but underlying dementia process seems likely.
DVT Prophylaxis: Lovenox
Code Status: Full
--- NOTE | 2025-07-09 06:05 | PTCARENOTE ---
recieved pt from Ed. Pt. oritented to unit and call bridges within reach. pt. care ongoing.
[2025-07-09 07:33] LABS: Hematocrit 24.5 % (39.0-52.0); Hemoglobin 8.0 g/dL (13.0-18.0); Mean Corp Hgb Conc. 32.7 g/dL (33.0-37.0); Mean Corpuscular Volume 87.8 fL (80.0-94.0); Platelet Count 208 10^3/uL (130-400); Red Cell Dist. Width 13.7 % (11.5-14.5)
--- NOTE | 2025-07-09 07:48 | W.PN.HOSP.TC ---
Today's Communication/Plan
-
Continue antibiotic for now.
Pending cultures
Assessment / Plan
Assessment / Plan
Impression:
Patient is an 84y M with PMH significant for hypertension, SSS s/p PPM and hyperparathyroidism who presents to ED for evaluation of weakness and confusion. Patient was brought in by son who reports increased weakness / confusion over the past 24
hours. Patient was last hospitalized 06/14 - 06/17 with similar presentation and found to be hyponatremic at that time. Patient was noted to be very shaky / tremulous this evening. Patient is without fever or leukocytosis, started on Cipro in the
ER, admitted under hospital service, Cipro continued pending cultures.
Assessment/plan:
Severe sepsis with acute organ dysfunction
Patient meets sepsis criteria on admission
WBCs 16.5
Respiratory rate 28
Temperature
Source of infection is undetermined currently,? Pulm, UTI.
Acute organ dysfunction in form of acute metabolic encephalopathy.
COVID-negative, influenza negative lactic acid negative
IV fluid started
IV antibiotic in form of ciprofloxacin (penicillin, cephalosporin allergy)
Blood culture pending
Urine culture pending
Acute metabolic encephalopathy.
Secondary to sepsis/hyponatremia.
Continue to monitor mental status.
Chronic Hyponatremia
- Stable. Current Na level appears at his known baseline.
- Recent admission for severe / acute hyponatremia and this remains improved.
- Remain off of HCTZ.
- Fluid restriction.
Benign Hypertension
- BP elevated in the ED. Recent med changes noted including discontinuing HCTZ and holding amlodipine.
- Continue losartan / resume amlodipine.
- Adjust med regimen as needed for adequate control.
Chronic Iron Deficiency Anemia
- Stable. Hgb is at / near known baseline.
- Continue iron supplementation.
Suspected Dementia
- Noted confusion / memory impairment during recent admission.
- CT head today with no acute abnormality - but noted diffuse volume loss.
- Likely some acute confusion due to fever / infection - but underlying dementia process seems likely.
CODE STATUS: Full code
DVT prophylaxis: Lovenox
Diet: Regular diet
Disposition: Continue antibiotic for now.
Pending cultures
Total time spent on today's encounter was 65 minutes which included time spent in counseling the patient/family regarding diagnosis and treatment plan as listed above, goals of care, and symptom management. Case was discussed with nursing staff,
specialists, and care coordinators/case management. All labs and imaging personally reviewed by me. Remainder the time spent in detailed review of previous records, lab data, imaging, and other medical provider documentation.
Anticipated Discharge: 24 - 48 hours
Subjective/Interval History
-
Date of Service: July 09, 2025
Patient seen and examined at bedside, patient is awake but not fully oriented, denies any chest pain or shortness of breath, no abdominal pain, no nausea, no vomiting, no diarrhea or constipation.
Objective Data
-
Labs:
Laboratory Results
07/09/25 07/09/25
01:55 06:44
WBC 16.0 H 16.5 H
Hgb 9.9 L 8.0 L
Hct 30.2 L 24.5 L
Plt Count 263 208 D
Sodium 133 L Pending
Potassium 4.2 Pending
Chloride 102 Pending
Carbon Dioxide 21 L Pending
BUN 10 Pending
Creatinine 0.7 Pending
Glucose 78 Pending
Calcium 9.7 Pending
Total Bilirubin 0.7 Pending
AST 24 Pending
ALT 17 Pending
Alkaline Phosphatase 189 H Pending
Vital Signs:
Vital Signs
Temp Pulse Resp BP Pulse Ox
97.9 F 71 18 142/78 99
07/09/25 05:51 07/09/25 05:51 07/09/25 05:51 07/09/25 05:51 07/09/25 05:51
I&O
07/08/25 07/09/25 07/10/25
06:59 06:59 06:59
Output Total 100 / 100
Balance -100 / -100
Physical Exam
-
General: Well Developed, Well Nourished, No Apparent Distress and Comfortable
HEENT: Normocephalic, Atraumatic, Moist Mucous Membranes, No Ptosis, PERRLA and Nose Appears Normal
Respiratory: Clear to Auscultation and Non Labored Respirations
Cardiac: Regular Rhythm and S1/S2
Breast: Deferred by me
GI: Soft, Nontender, Nondistended and Normal Bowel Sounds
Genito-urinary: No Costovertebral Tender
Musculoskeletal: No Clubbing, No Cyanosis and No Edema
Skin: Warm
Neuro: Awake, Alert and No Motor Deficits
Psych: Confused
Data Reviewed
-
Diagnostic Radiology: Image personally visualized and interpreted and Report Reviewed by me
CT Scan: Image personally visualized and interpreted and Report Reviewed by me
Ultrasound: Image personally visualized and interpreted and Report Reviewed by me
MRI: Image personally visualized and interpreted and Report Reviewed by me
Medical Tests (Nuc Med, Echo etc): Image personally visualized and interpreted and Report Reviewed by me
Labs: Labs Reviewed by me
Old Records: Reviewed
[2025-07-09 07:56] LABS: ALT (SGPT) 14 U/L (0-50); AST (SGOT) 21 U/L (17-59); Albumin 3.5 g/dl (3.5-5.0); Alkaline Phosphatase 151 U/L (38-126); Blood Urea Nitrogen 8 mg/dl (9-20); Calcium 8.8 mg/dl (8.4-10.2); Carbon Dioxide 22 mmol/L (22-30); Chloride 102 mmol/L (98-107); Estimated Creatinine Clearance 86 ml/min; Glucose 69 mg/dl (70-99); Magnesium 1.9 mg/dl (1.6-2.3); Potassium 3.7 mmol/L (3.5-5.1); Sodium 130 mmol/L (135-145); Total Protein 5.8 g/dl (6.3-8.2); eGFR > 60.00
[2025-07-09] MEDS: COZAAR 100 MG PO (08:27)
[2025-07-09] MEDS: NORVASC 10 MG PO (08:28)
[2025-07-09] MEDS: FEOSOL 325 MG PO (08:28)
--- NOTE | 2025-07-09 14:24 | VNURNOTE ---
[facility] referral completed in [facility].
--- NOTE | 2025-07-09 14:36 | CM ---
is manager reviewed patient's chart and met with patient, and reached out to patient's son, Johnny by phone, patient lives in a 2 story home with one set to enter patient lives with his son Johnny, who is disabled, patient has a first floor set
up, patient is independent with adl's and ambulation, no dme, patient is currently ambulating 100 feet min assist with out a device with physical therapy, patient had [facility] and son is agreeable to [facility] at discharge, [facility] liaison notified.
Plan; Home with son and [facility] patient's son is not sure his father will go to a skilled facility.
PCP: Dr. Sol Belcher [facility].
Pharmacy: [facility].
[2025-07-10] MEDS: CIPRO 400 MG 200 IV ×2 (03:48→16:58)
[2025-07-10 03:55] VITALS: BP 146/74
[2025-07-10 06:00] VITALS: BMI 22.2
[2025-07-10 07:30] VITALS: BP 150/80
[2025-07-10] MEDS: FEOSOL 325 MG PO (07:40)
[2025-07-10] MEDS: NORVASC 10 MG PO (07:40)
[2025-07-10] MEDS: COZAAR 100 MG PO (07:40)
[2025-07-10 07:48] LABS: Hematocrit 26.6 % (39.0-52.0); Hemoglobin 9.3 g/dL (13.0-18.0); Mean Corp Hgb Conc. 35.0 g/dL (33.0-37.0); Mean Corpuscular Volume 85.3 fL (80.0-94.0); Platelet Count 248 10^3/uL (130-400); Red Cell Dist. Width 13.3 % (11.5-14.5)
[2025-07-10 08:13] LABS: Blood Urea Nitrogen 10 mg/dl (9-20); Calcium 9.0 mg/dl (8.4-10.2); Carbon Dioxide 22 mmol/L (22-30); Chloride 103 mmol/L (98-107); Estimated Creatinine Clearance 83 ml/min; Glucose 83 mg/dl (70-99); Potassium 4.0 mmol/L (3.5-5.1); Sodium 133 mmol/L (135-145); eGFR > 60.00
[2025-07-10 11:30] VITALS: BP 125/59
--- NOTE | 2025-07-10 11:51 | W.PN.HOSP.TC ---
Today's Communication/Plan
-
Continue antibiotic for now.
Physical therapy recommending rehab,
Discharge to rehab if patient agreeable otherwise home physical therapy tomorrow
Assessment / Plan
Assessment / Plan
Impression:
Patient is an 84y M with PMH significant for hypertension, SSS s/p PPM and hyperparathyroidism who presents to ED for evaluation of weakness and confusion. Patient was brought in by son who reports increased weakness / confusion over the past 24
hours. Patient was last hospitalized 06/14 - 06/17 with similar presentation and found to be hyponatremic at that time. Patient was noted to be very shaky / tremulous this evening. Patient is without fever or leukocytosis, started on Cipro in the
ER, admitted under hospital service, Cipro continued pending cultures.
Urine culture came back shows gram-negative Staph aureus
Assessment/plan:
Severe sepsis with acute organ dysfunction
Patient meets sepsis criteria on admission
WBCs 16.5
Respiratory rate 28
Temperature
Source of infection is undetermined currently,? Pulm, UTI.
Acute organ dysfunction in form of acute metabolic encephalopathy.
COVID-negative, influenza negative lactic acid negative
IV fluid started
IV antibiotic in form of ciprofloxacin (penicillin, cephalosporin allergy)
Blood culture pending
Urine culture coag negative staph auris
Acute metabolic encephalopathy.
Secondary to sepsis/hyponatremia.
Continue to monitor mental status.
Overall improved
Chronic Hyponatremia
- Stable. Current Na level appears at his known baseline.
- Recent admission for severe / acute hyponatremia and this remains improved.
- Remain off of HCTZ.
- Fluid restriction.
Benign Hypertension
- BP elevated in the ED. Recent med changes noted including discontinuing HCTZ and holding amlodipine.
- Continue losartan / resume amlodipine.
- Adjust med regimen as needed for adequate control.
Chronic Iron Deficiency Anemia
- Stable. Hgb is at / near known baseline.
- Continue iron supplementation.
Suspected Dementia
- Noted confusion / memory impairment during recent admission.
- CT head today with no acute abnormality - but noted diffuse volume loss.
- Likely some acute confusion due to fever / infection - but underlying dementia process seems likely.
CODE STATUS: Full code
DVT prophylaxis: Lovenox
Diet: Regular diet
Disposition: Continue antibiotic for now.
Physical therapy recommending rehab, discharge to rehab if patient agreeable otherwise home physical therapy tomorrow
Total time spent on today's encounter was 65 minutes which included time spent in counseling the patient/family regarding diagnosis and treatment plan as listed above, goals of care, and symptom management. Case was discussed with nursing staff,
specialists, and care coordinators/case management. All labs and imaging personally reviewed by me. Remainder the time spent in detailed review of previous records, lab data, imaging, and other medical provider documentation.
Anticipated Discharge: Within 24 hours
Subjective/Interval History
-
Date of Service: July 10, 2025
Patient seen and examined at bedside, more awake and oriented, denies any chest pain or shortness of breath, no abdominal pain, no nausea, no vomiting, no diarrhea or constipation.
Objective Data
-
Labs:
Laboratory Results
07/10/25 07/10/25
06:41 06:42
WBC 11.3 H
Hgb 9.3 L
Hct 26.6 L
Plt Count 248
Sodium 133 L
Potassium 4.0
Chloride 103
Carbon Dioxide 22
BUN 10
Creatinine 0.6 L
Glucose 83
Calcium 9.0
Vital Signs:
Vital Signs
Temp Pulse Resp BP Pulse Ox
98.5 F 71 20 125/59 95
07/10/25 11:30 07/10/25 11:30 07/10/25 11:30 07/10/25 11:30 07/10/25 11:30
I&O
07/09/25 07/10/25 07/11/25
06:59 06:59 06:59
Intake Total 500 / 500
Output Total 100 / 100 1170 / 1170
Balance -100 / -100 -670 / -670
Physical Exam
-
General: Well Developed, Well Nourished, No Apparent Distress and Comfortable
HEENT: Normocephalic, Atraumatic, Moist Mucous Membranes, No Ptosis, PERRLA and Nose Appears Normal
Respiratory: Clear to Auscultation and Non Labored Respirations
Cardiac: Regular Rhythm and S1/S2
Breast: Deferred by me
GI: Soft, Nontender, Nondistended and Normal Bowel Sounds
Genito-urinary: No Costovertebral Tender
Musculoskeletal: No Clubbing, No Cyanosis and No Edema
Skin: Warm
Neuro: Awake, Alert and No Motor Deficits
Psych: Confused
--- NOTE | 2025-07-10 12:42 | CM ---
telemarketing manager received a call from physician that patient is for possible discharge tomorrow, binder caser reached out to patient's son Johnny and left a message to confirm plan to home with [facility].
Plan; Home with [facility] possibly tomorrow per physician, message left for patient, son to review discharge.
[2025-07-10 15:25] VITALS: BP 134/72
[2025-07-10 19:50] VITALS: BP 145/72
[2025-07-11 00:14] VITALS: BP 157/77
[2025-07-11 03:32] VITALS: BP 152/77
[2025-07-11] MEDS: CIPRO 400 MG 200 IV (03:58)
[2025-07-11 06:00] VITALS: BMI 22.1
[2025-07-11 06:35] LABS: Hematocrit 25.6 % (39.0-52.0); Hemoglobin 8.9 g/dL (13.0-18.0); Mean Corp Hgb Conc. 34.8 g/dL (33.0-37.0); Mean Corpuscular Volume 85.6 fL (80.0-94.0); Platelet Count 218 10^3/uL (130-400); Red Cell Dist. Width 13.4 % (11.5-14.5)
[2025-07-11 06:59] LABS: Blood Urea Nitrogen 8 mg/dl (9-20); Calcium 8.7 mg/dl (8.4-10.2); Carbon Dioxide 23 mmol/L (22-30); Chloride 104 mmol/L (98-107); Estimated Creatinine Clearance 83 ml/min; Glucose 107 mg/dl (70-99); Potassium 3.6 mmol/L (3.5-5.1); Sodium 131 mmol/L (135-145); eGFR > 60.00
[2025-07-11 07:05] VITALS: BP 138/68
[2025-07-11] MEDS: COZAAR 100 MG PO (08:22)
[2025-07-11] MEDS: FEOSOL 325 MG PO (08:23)
[2025-07-11] MEDS: NORVASC 10 MG PO (08:23)
[2025-07-11 11:20] VITALS: BP 116/56
--- NOTE | 2025-07-11 11:21 | CM ---
Confirmed in [facility] pt is accepted by [facility] for VN at pa.
--- NOTE | 2025-07-11 12:08 | W.PN.HOSP.TC ---
Today's Communication/Plan
-
Discharge home with home physical therapy
Assessment / Plan
Assessment / Plan
Impression:
Patient is an 84y M with PMH significant for hypertension, SSS s/p PPM and hyperparathyroidism who presents to ED for evaluation of weakness and confusion. Patient was brought in by son who reports increased weakness / confusion over the past 24
hours. Patient was last hospitalized 06/14 - 06/17 with similar presentation and found to be hyponatremic at that time. Patient was noted to be very shaky / tremulous this evening. Patient is without fever or leukocytosis, started on Cipro in the
ER, admitted under hospital service, Cipro continued pending cultures.
Urine culture came back shows gram-negative Staph aureus.
Overall mental status and clinically improved on ciprofloxacin-will be discharged on additional 5-days.
Assessment/plan:
Severe sepsis with acute organ dysfunction
Patient meets sepsis criteria on admission
WBCs 16.5
Respiratory rate 28
Temperature
Source of infection is undetermined currently,? Pulm, UTI.
Acute organ dysfunction in form of acute metabolic encephalopathy.
COVID-negative, influenza negative lactic acid negative
IV fluid started
IV antibiotic in form of ciprofloxacin (penicillin, cephalosporin allergy)
Blood culture negative
Urine culture coag negative staph auris
Acute metabolic encephalopathy.
Secondary to sepsis/hyponatremia.
Continue to monitor mental status.
Overall improved
Chronic Hyponatremia
- Stable. Current Na level appears at his known baseline.
- Recent admission for severe / acute hyponatremia and this remains improved.
- Remain off of HCTZ.
- Fluid restriction.
Benign Hypertension
- BP elevated in the ED. Recent med changes noted including discontinuing HCTZ and holding amlodipine.
- Continue losartan / resume amlodipine.
- Adjust med regimen as needed for adequate control.
Chronic Iron Deficiency Anemia
- Stable. Hgb is at / near known baseline.
- Continue iron supplementation.
Suspected Dementia
- Noted confusion / memory impairment during recent admission.
- CT head today with no acute abnormality - but noted diffuse volume loss.
- Likely some acute confusion due to fever / infection - but underlying dementia process seems likely.
CODE STATUS: Full code
DVT prophylaxis: Lovenox
Diet: Regular diet
Communication: Try to reach son Johnny by phone but no answer
Disposition: Continue antibiotic for now.
Physical therapy recommending rehab, patient refused rehab, tried to reach son but no answer, will discharge with home physical therapy today.
Total time spent on today's encounter was 65 minutes which included time spent in counseling the patient/family regarding diagnosis and treatment plan as listed above, goals of care, and symptom management. Case was discussed with nursing staff,
specialists, and care coordinators/case management. All labs and imaging personally reviewed by me. Remainder the time spent in detailed review of previous records, lab data, imaging, and other medical provider documentation.
Anticipated Discharge: Today
Subjective/Interval History
-
Date of Service: July 11, 2025
Patient seen and examined at bedside, denies any chest pain or shortness of breath, no abdominal pain, no nausea, no vomiting, no diarrhea or constipation.
Objective Data
-
Labs:
Laboratory Results
07/11/25
06:13
WBC 11.2 H
Hgb 8.9 L
Hct 25.6 L
Plt Count 218
Sodium 131 L
Potassium 3.6
Chloride 104
Carbon Dioxide 23
BUN 8 L
Creatinine 0.5 L
Glucose 107 H
Calcium 8.7
Vital Signs:
Vital Signs
Temp Pulse Resp BP Pulse Ox
98.8 F 64 16 138/68 98
07/11/25 07:05 07/11/25 07:05 07/11/25 07:05 07/11/25 07:05 07/11/25 07:05
I&O
07/10/25 07/11/25 07/12/25
06:59 06:59 06:59
Intake Total 500 / 500 420 / 420
Output Total 1170 / 1170 1015 / 1015
Balance -670 / -670 -595 / -595
Physical Exam
-
General: Well Developed, Well Nourished, No Apparent Distress and Comfortable
HEENT: Normocephalic, Atraumatic, Moist Mucous Membranes, No Ptosis, PERRLA and Nose Appears Normal
Respiratory: Clear to Auscultation and Non Labored Respirations
Cardiac: Regular Rhythm and S1/S2
Breast: Deferred by me
GI: Soft, Nontender, Nondistended and Normal Bowel Sounds
Genito-urinary: No Costovertebral Tender
Musculoskeletal: No Clubbing, No Cyanosis and No Edema
Skin: Warm
Neuro: Awake, Alert and No Motor Deficits
Psych: Confused
--- NOTE | 2025-07-11 12:17 | W.DCSUMMARY ---
Discharge Summary
Discharge Data
Date of Admission: 07/09/25
Date of Discharge: 07/11/25
Total time spent discharging patient (in min): 40
-
Pending Results: No
Hospital Course
Hospital course
Patient is an 84y M with PMH significant for hypertension, SSS s/p PPM and hyperparathyroidism who presents to ED for evaluation of weakness and confusion. Patient was brought in by son who reports increased weakness / confusion over the past 24
hours. Patient was last hospitalized 06/14 - 06/17 with similar presentation and found to be hyponatremic at that time. Patient was noted to be very shaky / tremulous this evening. Patient is without fever or leukocytosis, started on Cipro in the
ER, admitted under hospital service, Cipro continued pending cultures.
Urine culture came back shows gram-negative Staph aureus.
Overall mental status and clinically improved on ciprofloxacin-will be discharged on additional 5-days.
During hospitalization patient was treated from the following
Severe sepsis with acute organ dysfunction
Patient meets sepsis criteria on admission
WBCs 16.5
Respiratory rate 28
Temperature
Source of infection is undetermined currently,? Pulm, UTI.
Acute organ dysfunction in form of acute metabolic encephalopathy.
COVID-negative, influenza negative lactic acid negative
IV fluid started
IV antibiotic in form of ciprofloxacin (penicillin, cephalosporin allergy)
Blood culture negative
Urine culture coag negative staph auris
Acute metabolic encephalopathy.
Secondary to sepsis/hyponatremia.
Continue to monitor mental status.
Overall improved
Chronic Hyponatremia
- Stable. Current Na level appears at his known baseline.
- Recent admission for severe / acute hyponatremia and this remains improved.
- Remain off of HCTZ.
- Fluid restriction.
Benign Hypertension
- BP elevated in the ED. Recent med changes noted including discontinuing HCTZ and holding amlodipine.
- Continue losartan / resume amlodipine.
- Adjust med regimen as needed for adequate control.
Chronic Iron Deficiency Anemia
- Stable. Hgb is at / near known baseline.
- Continue iron supplementation.
Suspected Dementia
- Noted confusion / memory impairment during recent admission.
- CT head today with no acute abnormality - but noted diffuse volume loss.
- Likely some acute confusion due to fever / infection - but underlying dementia process seems likely.
CODE STATUS: Full code
DVT prophylaxis: Lovenox
Diet: Regular diet
Communication: Try to reach son Johnny by phone but no answer
Disposition: Continue antibiotic for now.
Physical therapy recommending rehab, patient refused rehab, tried to reach son but no answer, will discharge with home physical therapy today.
Total time spent on today's encounter was 40 minutes which included time spent in counseling the patient/family regarding diagnosis and treatment plan as listed above, goals of care, and symptom management. Case was discussed with nursing staff,
specialists, and care coordinators/case management. All labs and imaging personally reviewed by me. Remainder the time spent in detailed review of previous records, lab data, imaging, and other medical provider documentation.
Anticipated Discharge: Today
Discharge Plan
-
Patient Disposition: Home with Home Care
Discharge Diagnosis/Procedures: Severe sepsis with acute organ dysfunction
UTI
Acute metabolic encephalopathy
Chronic Hyponatremia
Condition: Fair
Diet: As tolerated and Regular
Activity: With assistance and As tolerated
Other Services: PT and OT
Referrals:
PCP [Other] - in less than 1 week
Prescriptions:
New
ciprofloxacin HCl 500 mg tablet
500 mg PO BID 5 Days Qty: 10 0RF
Continued
flaxseed oil 1,000 MG capsule
1,400 mg PO DAILY
green tea leaf extract 250 MG capsule
315 mg PO BID
coenzyme Q10 [Co Q-10] 100 MG capsule
300 mg PO DAILY
cinnamon bark [Cinnamon] 500 MG capsule
1,400 mg PO DAILY
astragalus root [Astragalus] 470 MG capsule
500 mg PO BID
red yeast rice 600 MG capsule
600 mg PO BID
milk thistle 500 MG capsule
1,000 mg PO BID
niacin 100 MG tablet
1,000 mg PO DAILY
ascorbic acid (vitamin C) [Vitamin C] 500 MG tablet
1,000 mg PO DAILY
amlodipine [Norvasc] 10 MG tablet
10 mg PO DAILY
losartan [Cozaar] 100 MG tablet
100 mg PO DAILY
magnesium oxide 250 mg magnesium Tablet
225 mg PO BID
atorvastatin 20 mg Tablet
10 mg PO Q48H
therapeutic multivitamin Tablet
1 tab PO DAILY
acetaminophen 650 mg Tablet Extended Release
1,300 mg PO Q12
garlic 1,000 mg Capsule
2,000 mg PO DAILY
zinc sulfate 50 mg zinc (220 mg) Tablet
50 mg PO DAILY
ferrous sulfate 28 mg iron Tablet
56 mg PO DAILY
omeprazole 20 mg Tablet,Delayed Release (Dr/Ec)
20 mg PO DAILY
cholecalciferol (vitamin D3) [Vitamin D3] 50 mcg (2,000 unit) Tablet
50 mcg PO DAILY
omega 0-ssx-izn-fish oil [Fish Oil] 1,000 (120-180) mg Capsule
1 cap PO BID
Glucosamine Chondroitin 550-30-1 mg Capsule
1 cap PO BID
Discharge Orders:
Discharge Patient (As Directed); Ordered 07/11/25
Ordered By: Carol Giron
Discharge Date and Time
Print Language: HONDURAN
--- NOTE | 2025-07-11 12:59 | CM ---
Left VM for son Johnny to update of a dc today and requesting callback at [phone].
[2025-07-11 15:25] VITALS: BP 142/71
== END 2025-07-11 16:58 | disposition home health service (06) | DRG 871 ==
LOC: 4 WEST ACU 05:38
PROVIDERS: ADMITTING PHYSICIAN Hospitalist; ATTENDING PHYSICIAN General Practice; EMERGENCY PHYSICIAN Emergency Medicine
DX: A41.01 Sepsis due to Methicillin susceptible Staphylococcus aureus (principal); G93.41 Metabolic encephalopathy; E87.1 Hypo-osmolality and hyponatremia; N39.0 Urinary tract infection, site not specified; I49.5 Sick sinus syndrome; R65.20 Severe sepsis without septic shock; I10 Essential (primary) hypertension; G89.29 Other chronic pain; F03.90 Unspecified dementia, unspecified severity, without behavioral disturbance, psychotic disturbance, mood disturbance, and anxiety; D50.9 Iron deficiency anemia, unspecified; E21.2 Other hyperparathyroidism; E78.00 Pure hypercholesterolemia, unspecified; K21.9 Gastro-esophageal reflux disease without esophagitis; Z95.0 Presence of cardiac pacemaker; Z11.52 Encounter for screening for COVID-19; Z79.899 Other long term (current) drug therapy
CPT/HCPCS: 51798; 70450; 71046; 80048; 80053; 80076; 81003; 81015; 82550; 83605; 83735; 83935; 84300; 84443; 85025; 85027; 87040; 87086; 87147; 87186; 87502; 87811; 93005; 93288; 96374; 97163; 97167; 99285

== ENCOUNTER 2025-08-03 01:11 | Emergency (ER) | payer OTHER, SELFPAY ==
[2025-08-03 01:17] VITALS: BP 162/92
[2025-08-03 01:25] VITALS: BMI 23.1
--- NOTE | 2025-08-03 01:33 | ED.GENMED ---
History of Present Illness
General
Chief Complaint: Back Pain
Source: patient
Exam Limitations: none
Time Seen by Provider: 08/03/25 01:24
History of Present Illness
History of Present Illness:
See MDM
Past History
Past History
ED Past Medical History: GERD, HTN, Hypercholesterolemia and Other (Hyperparathyroidism, hypercalcemia; chronic low back pain); Negative Cancer
ED Past Surgical History: Other (Parathyroidectomy May 13, 2024 at [facility])
Social History
Tobacco: Non-smoker
Alcohol: None
Personal:
Living: with family
Employment: Retired
Family History
Family History: Other (Noncontributory)
Phy Exam
Physical Exam
Physical Exam:
See MDM
Course
Orders/Labs/Results
Orders:
Orders
08/03/25 01:30
Oxycodone/Acetaminophen [Percocet 5/325] 1 tablet PO NOW STA
Lumbar Spine Complete, 4 View [CR Lumbar Spine Comp Min 4 Vw*] Urgent
Comment:
Reason For Exam: low back pain
Vital Signs
Initial and Last Documented VS:
Initial Vital Signs
Temp Pulse Resp BP Pulse Ox
97.4 F 70 22 162/92 100
08/03/25 01:17 08/03/25 01:17 08/03/25 01:17 08/03/25 01:17 08/03/25 01:17
Last Documented Vital Signs
Temp Pulse Resp BP Pulse Ox
97.4 F 70 22 162/92 99
08/03/25 01:17 08/03/25 01:17 08/03/25 01:17 08/03/25 01:17 08/03/25 01:38
MDM/Problems Addressed
Differential Diagnosis Includes:
Note:
CHIEF COMPLAINT(S)
Back pain for several months.
HISTORY OF PRESENT ILLNESS
The patient is an 84-year-old male who presents with back pain that has persisted for several months. The patient noted that he 'put up with it for a little time' before seeking medical attention. He was evaluated previously, where 'everything' was
done, including imaging studies such as x-rays. Currently, he denies any accompanying numbness, tingling, or urinary issues. The primary goal of this visit is to obtain medication for pain management, as it has been effective in the past.
EXTERNAL RECORDS REVIEWED
Previous records from the same hospital were reviewed, indicating thorough imaging was conducted, though the specific details or results were not explicitly recounted during the conversation.
PHYSICAL EXAM
General: Alert, no acute distress.
Skin: Warm, dry.
Head: Normocephalic, atraumatic
Neck: Appears supple, trachea midline.
Eyes, Ears, Nose, Mouth, and Throat: Moist mucous membranes
Cardiovascular: No signs of cyanosis
Respiratory: Respirations are non-labored.
Abdomen: Non-distended and nontender
Back: Mild bilateral sacroiliac tenderness without skin changes. No midline tenderness
Musculoskeletal: +1 pitting edema bilateral lower extremities (chronic per patient). Negative straight leg raise bilaterally. Both legs are neurovascularly intact distally
Neurological: No focal neurological deficit observed.
Psychiatric: Cooperative, appropriate mood and affect.
PLAN
The patients desire for pain management was acknowledged, with intentions to provide appropriate pain medications based on previous effective treatments. Further review of patients chart and records from past visits at the hospital was planned to
ensure continuity of care and verify previous interventions.
DIFFERENTIAL DIAGNOSIS
The Differential Diagnosis includes, in no particular order and is not limited to:
1. Lumbar Strain
2. Degenerative Disc Disease
3. Vertebral Compression Fracture
4. Spinal Stenosis
5. Spondylolisthesis
6. Osteoarthritis
7. Ankylosing Spondylitis
8. Sciatica
9. Metastatic Disease to Spine
10. Lumbar Radiculopathy
SUMMARY OF ENCOUNTER
The patient, an 84-year-old male, presented to the emergency department with persistent back pain. The primary goal of the visit was pain management. The patient was given pain medication, resulting in significant relief. He reported feeling
considerably better and stated this was the best pain relief he had experienced in months.
DISPOSITION
Discharge.
REASSESSMENT
After an observation period following the administration of pain medication, the patient reported feeling much improved and more comfortable.
PLAN
The plan includes providing the patient with appropriate pain medication for managing his back pain and ensuring he understands return precautions.
PATIENT EDUCATION AND COUNSELING
The patient was informed about return precautions and was comfortable with the discharge plan.
FOLLOW-UP INSTRUCTIONS
The patient was advised to follow up with his primary care physician for ongoing management of his back pain.
MEDICATION RECONCILIATION
Pain medication was administered during the visit, leading to significant relief of symptoms.
MEDICAL DECISION MAKING
-Complexity of Data Reviewed: Chronic conditions affecting care including a history of back pain. Potential differential diagnoses considered include lumbar strain, degenerative disc disease, vertebral compression fracture, spinal stenosis,
spondylolisthesis, osteoarthritis, ankylosing spondylitis, sciatica, metastatic disease to spine, lumbar radiculopathy.
-Risk: 'Consideration of Admission/Observation: Escalation of care including admission/observation was considered given the complexity and risk of the patients presenting complaint, exam findings, and/or their underlying comorbidities. However,
ultimately I feel the patient is safe for outpatient management with close follow-up. Reasoning: Work-up reassuring, does not reveal any acute life/organ threatening processes, patients symptoms well controlled upon reevaluation, reexamination is
reassuring, vitals are stable, patient agreeable with discharge, reliable for follow-up.'
DIAGNOSIS
Low back pain (M54.5).
*Pulse Oximetry
SaO2: 99
Oxygen Mode of Delivery: Room air
Patient hypoxic: no
*Critical Care Note
Total Time (30-74mins, 75-104mins- exclusive of procedures): Not Applicable
ED Attending Note
-
Portions of this chart may have been created with voice recognition software.� Occasional wrong word or��sound alike� substitutions may have occurred due to the inherent limitations of voice recognition software.
Discharge Plan
Departure
Patient Disposition: Home (Routine Discharge)
Date of Disposition: 08/03/25
Time of Disposition: 04:06
Patient with high blood pressure during this ER visit?: Yes
Discharge Problem:
Low back pain
Instructions: Low Back Pain (DC), BLOOD PRESSURE
Prescriptions:
New
oxycodone 5 mg tablet
5 mg PO BID Qty: 14 0RF
No Action
flaxseed oil 1,000 MG capsule
1,400 mg PO DAILY
green tea leaf extract 250 MG capsule
315 mg PO BID
coenzyme Q10 [Co Q-10] 100 MG capsule
300 mg PO DAILY
cinnamon bark [Cinnamon] 500 MG capsule
1,400 mg PO DAILY
astragalus root [Astragalus] 470 MG capsule
500 mg PO BID
red yeast rice 600 MG capsule
600 mg PO BID
milk thistle 500 MG capsule
1,000 mg PO BID
niacin 100 MG tablet
1,000 mg PO DAILY
ascorbic acid (vitamin C) [Vitamin C] 500 MG tablet
1,000 mg PO DAILY
amlodipine [Norvasc] 10 MG tablet
10 mg PO DAILY
losartan [Cozaar] 100 MG tablet
100 mg PO DAILY
magnesium oxide 250 mg magnesium Tablet
225 mg PO BID
atorvastatin 20 mg Tablet
10 mg PO Q48H
therapeutic multivitamin Tablet
1 tab PO DAILY
acetaminophen 650 mg Tablet Extended Release
1,300 mg PO Q12
garlic 1,000 mg Capsule
2,000 mg PO DAILY
zinc sulfate 50 mg zinc (220 mg) Tablet
50 mg PO DAILY
ferrous sulfate 28 mg iron Tablet
56 mg PO DAILY
omeprazole 20 mg Tablet,Delayed Release (Dr/Ec)
20 mg PO DAILY
cholecalciferol (vitamin D3) [Vitamin D3] 50 mcg (2,000 unit) Tablet
50 mcg PO DAILY
omega 2-sid-swx-fish oil [Fish Oil] 1,000 (120-180) mg Capsule
1 cap PO BID
Glucosamine Chondroitin 550-30-1 mg Capsule
1 cap PO BID
ciprofloxacin HCl 500 mg tablet
500 mg PO BID 5 Days Qty: 10 0RF
Referrals:
UNKNOWN - PT DOES,NOT KNOW [Family Provider]
Activity Restrictions/Additional Instructions:
Please return for any worsening symptoms.
You may return at any time if you have further concerns.
Please follow up with your doctor at the first available appointment, preferably this week. Please discuss your symptoms and discuss physical therapy.
You were given a prescription for narcotics. If you require this pain medicine, please take a daily [id number] stool softener to avoid constipation.
Thank you for choosing [facility].
Interventions
Interventions:
*General Assessment Last Done: 08/03/25 01:25
*Neglect/Abuse Screening Last Done: 08/03/25 01:25
*ED- Fall Risk Assessment Last Done: 08/03/25 01:25
*ED COVID-19 Vaccine History Last Done: 08/03/25 01:25
*ED Influenza Vaccine History Last Done: 08/03/25 01:25
ED-Musculoskeletal Assessment Last Done: 08/03/25 01:25
Discharge Date and Time
Print Language: ALBANIAN
[2025-08-03] MEDS: PERCOCET 5/325 1 TABLET PO (01:37)
== END 2025-08-03 06:17 | disposition home or self-care (01) ==
LOC: EMR 01:11
PROVIDERS: EMERGENCY PHYSICIAN Student in an Organized Health Care Education/Training Program
DX: M54.50 Low back pain, unspecified (principal); G89.29 Other chronic pain; E78.00 Pure hypercholesterolemia, unspecified; I10 Essential (primary) hypertension
CPT/HCPCS: 99283; 72110

== ENCOUNTER 2025-08-04 09:09 | Emergency (ER) | payer OTHER, SELFPAY ==
[2025-08-04 09:18] VITALS: BP 163/81
--- NOTE | 2025-08-04 09:24 | ED.GENMED ---
History of Present Illness
General
Chief Complaint: Fall
Time Seen by Provider: 08/04/25 09:10
History of Present Illness
History of Present Illness:
84-year-old male presents to the emergency department for evaluation After fall in the kitchen. States he was making his breakfast when he simply fell down. He denies tripping but denies any dizziness leading up to this. He did strike his head
and there is evidence of trauma on exam. He is not on anticoagulants. He currently denies headache, vision changes, neck pain, or extremity paresthesias. He was noted to have significant difficulty in transferring from stretcher to exam bed by
nursing staff however states he had no weakness and ambulates without assistive devices. Was seen in this emergency department today for back pain and treated supportively
Past History
Past History
ED Past Medical History: GERD, HTN, Hypercholesterolemia and Other (Hyperparathyroidism, hypercalcemia; chronic low back pain); Negative Cancer
ED Past Surgical History: Other (Parathyroidectomy May 13, 2024 at [facility])
Social History
Tobacco: Non-smoker
Alcohol: None
Personal:
Living: with family
Employment: Retired
Family History
Family History: Other (Noncontributory)
Review of Systems
Review of Systems
Allergies reviewed?: Yes
All Other Systems: ROS reviewed and negative except as documented in HPI and ROS
Phy Exam
Physical Exam
Physical Exam:
GEN: Well appearing, NAD, WDWN
HEENT: Minor ecchymosis/cephalohematoma to the left forehead with no crepitus or open wounds oral mucosa moist, no scleral icterus
Cardiac: Regular rate
Lung: No respiratory distress, no tachypnea
MSK: Minor swelling with abrasion to the left olecranon, left elbow range of motion is normal. No midline cervical, thoracic, or lumbar spinal tenderness
Skin: Good color, no pallor or jaundice, no rashes
Neuro: AO x3, moves all extremities freely
Psych: Calm, cooperative
Course
Orders/Labs/Results
Orders:
Orders
08/04/25 09:19
EKG [Electrocardiogram (*1)] Urgent
Reason for Study: Fatigue / Weakness
EKG- Treatment ONCE
08/04/25 09:20
Interrogate Pacemaker- Treatment ONCE
08/04/25 09:21
CT Head W/o Iv Contrast Urgent
Comment:
Reason For Exam: fall head injury
08/04/25 09:23
Basic Metabolic Panel Urgent
CBC/With Diff [Complete Blood Count/With Diff] Urgent
Osmolality, Random Urine Urgent
Date Specimen was Collected: 08/04/25
Time Specimen was Collected: 09:20
Comment: ADD ON
Urinalysis Reflex To Culture Urgent
Date Specimen was Collected: 08/04/25
Time Specimen was Collected: 09:20
Urine Microscopic Reflex Cult Urgent
Urine Sodium Urgent
Date Specimen was Collected: 08/04/25
Time Specimen was Collected: 09:20
Comment: ADD ON
08/04/25 10:27
Add On- LAB Urgent
Tests Added?: urine osmol, urine sodium, serum osmol
08/04/25 11:23
Pt Eval And Treat Urgent
Activity Level: Ambulate
08/04/25 11:25
Potassium Urgent
Serum Osmolality Urgent
08/04/25 12:26
Case Management Consult ONCE
Case Management Consult: VN/Home Care
Abnormal Lab Results
08/04/25 08/04/25
09:23 11:25
WBC 11.9 H 10^3/uL
(4.8-10.8)
RBC 3.27 L 10^6/uL
(4.70-6.10)
Hgb 9.1 L g/dL
(13.0-18.0)
Hct 27.5 L %
(39.0-52.0)
Abs Immat Gran (auto) 0.1 H 10^3/uL
(0-0.05)
Absolute Neuts (auto) 10.1 H 10^3/uL
(1.4-6.5)
Absolute Lymphs (auto) 0.9 L 10^3/uL
(1.2-3.4)
Absolute Monos (auto) 0.7 H 10^3/uL
(0.1-0.6)
Immature Gran % 0.6 H %
(0-0.5)
Neutrophils % 84.7 H %
(42.2-75.2)
Lymphocytes % 7.5 L %
(20.5-51.1)
Sodium 125 L mmol/L
(135-145)
Chloride 96 L mmol/L
(98-107)
Glucose 69 L mg/dl
(70-99)
Serum Osmolality 264 L mOsm/kg
(275-300)
Urine Ketones 1+ A
(Negative)
Urine Osmolality 159 L mOsm/kg
(300-900)
Urine Sodium 20 L mmol/L
(30-90)
Urine Albumin (Reflex) 2+ A
(Neg - Trace)
08/04/25 09:23
08/04/25 11:25
Vital Signs
Initial and Last Documented VS:
Initial Vital Signs
Pulse Resp
79 20
08/04/25 09:17 08/04/25 09:17
Last Documented Vital Signs
Temp Pulse Resp BP Pulse Ox
97.6 F 86 20 156/71 96
08/04/25 12:00 08/04/25 12:00 08/04/25 12:00 08/04/25 12:00 08/04/25 12:00
MDM/Problems Addressed
MDM/Problems Addressed:
Patient does have recurrent hyponatremia which is likely due to his noncompliance with fluid restriction, he does not appear hypovolemic on exam. He has decreased his Mountain Dew intake in favor of Gatorade, I have encouraged him to decrease his
overall fluid intake to 64 ounces daily. 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 No longer on HCTZ. He was evaluated by PT and deemed stable for discharge home with walker which was provided, case management will set up
home PT for him. He is preferential to discharge home given that he helps to care for his poorly controlled diabetic son.
Comment
Comment:
EKG independently interpreted by me shows an AV paced rhythm with T wave inversion noted in V2 which is increased compared to EKG from June 2025
*Pulse Oximetry
Patient hypoxic: no
*Critical Care Note
Total Time (30-74mins, 75-104mins- exclusive of procedures): Not Applicable
Update Note
Update Note:
Patient seen by PT, suitable for discharge home with walker which will be provided to him here. business control manager will be consulted for home PT
ED Attending Note
-
Portions of this chart may have been created with voice recognition software.� Occasional wrong word or��sound alike� substitutions may have occurred due to the inherent limitations of voice recognition software.
Discharge Plan
Departure
Patient Disposition: Home (Routine Discharge)
Date of Disposition: 08/04/25
Time of Disposition: 12:57
Patient with high blood pressure during this ER visit?: No
Discharge Problem:
Fall, Hyponatremia
Instructions: Preventing falls in adults
Prescriptions:
No Action
flaxseed oil 1,000 MG capsule
1,400 mg PO DAILY
green tea leaf extract 250 MG capsule
315 mg PO BID
coenzyme Q10 [Co Q-10] 100 MG capsule
300 mg PO DAILY
cinnamon bark [Cinnamon] 500 MG capsule
1,400 mg PO DAILY
astragalus root [Astragalus] 470 MG capsule
500 mg PO BID
red yeast rice 600 MG capsule
600 mg PO BID
milk thistle 500 MG capsule
1,000 mg PO BID
niacin 100 MG tablet
1,000 mg PO HS
ascorbic acid (vitamin C) [Vitamin C] 500 MG tablet
1,000 mg PO DAILY
amlodipine [Norvasc] 10 MG tablet
10 mg PO DAILY
losartan [Cozaar] 100 MG tablet
100 mg PO DAILY
magnesium oxide 250 mg magnesium Tablet
225 mg PO BID
atorvastatin 20 mg Tablet
10 mg PO Q48H
therapeutic multivitamin Tablet
1 tab PO DAILY
acetaminophen 650 mg Tablet Extended Release
1,300 mg PO Q12
garlic 1,000 mg Capsule
2,000 mg PO DAILY
zinc sulfate 50 mg zinc (220 mg) Tablet
50 mg PO DAILY
ferrous sulfate 28 mg iron Tablet
56 mg PO DAILY
omeprazole 20 mg Tablet,Delayed Release (Dr/Ec)
20 mg PO DAILY
cholecalciferol (vitamin D3) [Vitamin D3] 50 mcg (2,000 unit) Tablet
50 mcg PO DAILY
omega 0-fhu-jmn-fish oil [Fish Oil] 1,000 (120-180) mg Capsule
1 cap PO BID
Glucosamine Chondroitin 550-30-1 mg Capsule
1 cap PO BID
ginseng 100 mg
200 mg PO DAILY
hydrochlorothiazide 25 mg
25 mg PO DAILY
B Complex-Vitamin C 200/120 Mg
1 cap PO HS
Referrals:
UNKNOWN - PT DOES,NOT KNOW [Family Provider]
Activity Restrictions/Additional Instructions:
Limit fluid intake (all sources) to 64 oz daily
Have your sodium rechecked on Saturday
If you develop dizziness or increased weakness, return to the ER immediately
Interventions
Interventions:
*Risk Screen - Suicide Last Done: 08/04/25 09:34
*General Assessment Last Done: 08/04/25 09:34
*Neglect/Abuse Screening Last Done: 08/04/25 09:34
*ED- Fall Risk Assessment Last Done: 08/04/25 09:34
*ED COVID-19 Vaccine History Last Done: 08/04/25 09:34
*ED Influenza Vaccine History Last Done: 08/04/25 09:34
ED-Musculoskeletal Assessment Last Done: 08/04/25 09:34
ED- Neurological Assessment Last Done: 08/04/25 09:34
ED-Skin Assessment Last Done: 08/04/25 09:34
Discharge Date and Time
Print Language: AMERICAN
[2025-08-04 09:31] LABS: Hematocrit 27.5 % (39.0-52.0); Hemoglobin 9.1 g/dL (13.0-18.0); Mean Corp Hgb Conc. 33.1 g/dL (33.0-37.0); Mean Corpuscular Volume 84.1 fL (80.0-94.0); Nucleated Red Blood Cells % 0 % (-); Platelet Count 211 10^3/uL (130-400); Red Cell Dist. Width 13.5 % (11.5-14.5)
[2025-08-04 09:34] VITALS: BP 163/81; BMI 21.2
[2025-08-04 10:00] VITALS: BP 160/82
[2025-08-04 10:01] LABS: Blood Urea Nitrogen 15 mg/dl (9-20); Calcium 9.1 mg/dl (8.4-10.2); Carbon Dioxide 22 mmol/L (22-30); Chloride 96 mmol/L (98-107); Estimated Creatinine Clearance 68 ml/min; Glucose 69 mg/dl (70-99); Sodium 125 mmol/L (135-145); eGFR > 60.00
[2025-08-04 10:21] LABS: Urine Character Clear (Clear)
[2025-08-04 10:30] LABS: Urine Red Blood Cell 0-2 /HPF (0-2); Urine White Cell 0-2 /HPF (0-5)
[2025-08-04 11:58] LABS: Potassium 4.6 mmol/L (3.5-5.1)
[2025-08-04 12:00] VITALS: BP 156/71
--- NOTE | 2025-08-04 12:34 | EDRN ---
physical therapy currently at the pts bedside
--- NOTE | 2025-08-04 12:37 | CM ---
Addendum entered by Christen Simons 08/04/25 17:15:
faxed clinical information to dr. belcher office for auth [id number] and called with no answer to [phone]; Adeline from [facility] aware
Original Note:
Met with patient at bedside in the ED, patient for discharge home with therapy; PT. Patient agreed to referral to [facility]. CM will send referral via all scripts.
Primary Contact: Son/Johnny BARNEY # [phone]
Pharmacy verified: Dil[facility] @ [address] [place]
Local Pharmacy: [facility] ([facility]) @ [facility] [place] [address]
Family Physician verified: Dr Sol Belcher @ the [facility] @ [address] [place] [address]
[place] ; Patient lives with his son, Johnny; multilevel home; 1 step to enter; his bedroom and bath on 1st floor; bath has tub w/ shower and grab bar
PLOF: reported he is independent with ambulation, stairs, and ADLs; currently not driving, previously no DME, given walker today in ED. CM will send referral to [facility] as patient indicated that he had them in the recent past. Patient son has
provided transport in the past. CM will continue to follow for discharge planning needs.
Plan; home with [facility]; walker given by therapy.
Son will provide transport
Discharge plan to be determined; Hand Etcher Helper will monitor and support if/when needs identified
[2025-08-04 15:49] VITALS: BP 131/85
== END 2025-08-04 16:19 | disposition home or self-care (01) ==
LOC: EMR 09:09
PROVIDERS: Physician Assistant; EMERGENCY PHYSICIAN Emergency Medicine
DX: E87.1 Hypo-osmolality and hyponatremia (principal); I10 Essential (primary) hypertension; E78.00 Pure hypercholesterolemia, unspecified; K21.9 Gastro-esophageal reflux disease without esophagitis; M54.50 Low back pain, unspecified; G89.29 Other chronic pain; Z95.0 Presence of cardiac pacemaker; Z91.199 Patient's noncompliance with other medical treatment and regimen due to unspecified reason; W18.30XA Fall on same level, unspecified, initial encounter; Y92.000 Kitchen of unspecified non-institutional (private) residence as the place of occurrence of the external cause
CPT/HCPCS: 99284; 93288; 70450; 80048; 81003; 81015; 83930; 83935; 84132; 84300; 85025; 93005

== ENCOUNTER 2025-08-11 03:06 | Emergency (ER) | payer OTHER, MEDICARE, SELFPAY ==
[2025-08-11 03:12] VITALS: BP 180/85
[2025-08-11 03:13] VITALS: BMI 21.8
[2025-08-11 04:00] VITALS: BP 167/74
--- NOTE | 2025-08-11 04:00 | ED.GENMED ---
History of Present Illness
General
Chief Complaint: Urinary Symptoms
Source: patient
Exam Limitations: none
Time Seen by Provider: 08/11/25 03:53
Nursing documentation reviewed up to this point in time: agreed with
History of Present Illness
History of Present Illness:
Note:
CHIEF COMPLAINT(S)
Frequent urination and difficulty sleeping.
HISTORY OF PRESENT ILLNESS
The patient is an 84-year-old male with pmh of GERD, HTN, HLP who presents with frequent urination, reporting that he wakes up sometimes every half an hour to urinate. These symptoms have been ongoing for about a month, occurring both day and night.
The patient is requesting a catheter although he is not retaining urine. He has never been evaluated by a urologist. He denies pain associated with urination, pelvic pain, flank pain, fevers or chills, although he denies abdominal pain. The patient
admits that family stress, particularly an argument with his son with whom he resides, may have exacerbated his blood pressure and contributed to the current visit. Despite these symptoms, the patient notes that he is predominantly able to void
denies urinary hesitancy.
SOCIAL DETERMINANTS AFFECTING HEALTH
The patient lives with his son, and there are indications of family stress as evidenced by a recent argument, which seems to have affected his blood pressure. There is no reported information about his financial situation, housing instability, or
employment.
PHYSICAL EXAM
General: Alert, no acute distress.
Skin: Warm, dry.
Head: Normocephalic, atraumatic.
Neck: Supple, trachea midline.
Eye Ears, nose, mouth and throat: Oral mucosa moist.
Cardiovascular: Regular rate and rhythm, no murmurs. Normal peripheral perfusion, No edema.
Respiratory: Respirations are non-labored. NO wheezes, rales, or rhonchi
Gastrointestinal: Abdomen nondistended and non-tender to palpation.
Back: Normal range of motion, normal alignment.
Musculoskeletal: Normal range of motion, normal strength.
Neurological: Alert and oriented to person, place, time, and situation, No focal neurological deficit observed.
Psychiatric: Cooperative, appropriate mood & affect.
PLAN
Urinalysis was ordered to evaluate potential infection. The plan includes placing an external urinary device temporarily. The patient will be monitored to assess the need for further interventions. Given the rise in blood pressure attributed to
family stress, follow-up on blood pressure management was implied.
DIFFERENTIAL DIAGNOSIS
The Differential Diagnosis includes, in no particular order and is not limited to:
1. Urinary tract infection
2. Benign prostatic hyperplasia
3. Overactive bladder
4. Diabetes mellitus
5. Prostatitis
6. Neurogenic bladder
7. Urinary retention
8. Bladder stones
9. Anxiety-related polyuria
10. Medication side effect
Disposition:
SUMMARY OF ENCOUNTER
An 84-year-old male presented to the emergency department with concerns of increased urinary frequency occurring every day for a month. The patient, after an argument with his son, called an ambulance but reports no change in his symptoms. The
emergency department evaluation found no acute urinary retention or signs of a urinary tract infection (UTI). Suspected symptoms are related to benign prostatic hyperplasia (BPH).
DISPOSITION
Discharge.
ASSESSMENT
The symptoms are suspected to be related to benign prostatic hyperplasia (BPH).
MANAGEMENT OF THE PATIENTS CARE WAS DISCUSSED WITH
Discussed case with the emergency department attending physician. No indicant for blood work at this time.
PLAN
The patient was advised to follow up with urology for further management of urinary symptoms and discharged with return precautions.
PATIENT EDUCATION AND COUNSELING
Discussed return precautions and the importance of follow-up with urology.
FOLLOW-UP INSTRUCTIONS
The patient was instructed to follow up with urology.
MEDICAL DECISION MAKING
- Number and Complexity of Problems Addressed: Chronic conditions affecting care include benign prostatic hyperplasia (BPH).
- Data:
- Category 2: My independent review suggests no indication for additional laboratory work at this time.
- Category 3: Discussion of management was conducted with the emergency department attending physician.
- Risk:
- Care significantly affected by Social Determinants of Health: Family stress was noted affecting the patients decision to visit the emergency department.
DIAGNOSIS
Benign prostatic hyperplasia (BPH) � ICD-10: N40.1
Past History
Past History
ED Past Medical History: GERD, HTN, Hypercholesterolemia and Other (Hyperparathyroidism, hypercalcemia; chronic low back pain); Negative Cancer
ED Past Surgical History: Other (Parathyroidectomy May 13, 2024 at [facility])
Social History
Tobacco: Non-smoker
Alcohol: None
Personal:
Living: with family
Employment: Retired
Family History
Family History: Other (Noncontributory)
Review of Systems
Review of Systems
All Other Systems: ROS reviewed and negative except as documented in HPI and ROS
Phy Exam
Physical Exam
Physical Exam:
see hpi
Course
Orders/Labs/Results
Orders:
Orders
08/11/25 03:58
Bladder Scan- Treatment ONCE
08/11/25 04:22
Urinalysis Reflex To Culture Urgent
Date Specimen was Collected: 08/11/25
Time Specimen was Collected: 04:20
Urine Microscopic Reflex Cult Urgent
Abnormal Lab Results
08/11/25
04:22
Urine Ketones 1+ A
(Negative)
Urine Albumin (Reflex) 3+ A
(Neg - Trace)
08/11/25 03:58
08/11/25 03:59
Vital Signs
Initial and Last Documented VS:
Initial Vital Signs
Temp Pulse Resp Pulse Ox
97.9 F 70 18 100
08/11/25 03:10 08/11/25 03:10 08/11/25 03:10 08/11/25 03:10
Last Documented Vital Signs
Temp Pulse Resp BP Pulse Ox
97.9 F 70 18 179/98 99
08/11/25 03:10 08/11/25 03:10 08/11/25 03:10 08/11/25 06:04 08/11/25 06:03
*Pulse Oximetry
SaO2: 97
Oxygen Mode of Delivery: Room air
Patient hypoxic: no
*Critical Care Note
Total Time (30-74mins, 75-104mins- exclusive of procedures): Not Applicable
ED Attending Note
-
Portions of this chart may have been created with voice recognition software.� Occasional wrong word or��sound alike� substitutions may have occurred due to the inherent limitations of voice recognition software.
Discharge Plan
Departure
Patient Disposition: Home (Routine Discharge)
Date of Disposition: 08/11/25
Time of Disposition: 06:17
Patient with high blood pressure during this ER visit?: Yes
Condition: Good
Discharge Problem:
Urinary frequency
Instructions: Benign prostatic hyperplasia (enlarged prostate), BLOOD PRESSURE
Prescriptions:
No Action
flaxseed oil 1,000 MG capsule
1,400 mg PO DAILY
green tea leaf extract 250 MG capsule
315 mg PO BID
coenzyme Q10 [Co Q-10] 100 MG capsule
300 mg PO DAILY
cinnamon bark [Cinnamon] 500 MG capsule
1,400 mg PO DAILY
astragalus root [Astragalus] 470 MG capsule
500 mg PO BID
red yeast rice 600 MG capsule
600 mg PO BID
milk thistle 500 MG capsule
1,000 mg PO BID
niacin 100 MG tablet
1,000 mg PO HS
ascorbic acid (vitamin C) [Vitamin C] 500 MG tablet
1,000 mg PO DAILY
amlodipine [Norvasc] 10 MG tablet
10 mg PO DAILY
losartan [Cozaar] 100 MG tablet
100 mg PO DAILY
magnesium oxide 250 mg magnesium Tablet
225 mg PO BID
atorvastatin 20 mg Tablet
10 mg PO Q48H
therapeutic multivitamin Tablet
1 tab PO DAILY
acetaminophen 650 mg Tablet Extended Release
1,300 mg PO Q12
garlic 1,000 mg Capsule
2,000 mg PO DAILY
zinc sulfate 50 mg zinc (220 mg) Tablet
50 mg PO DAILY
ferrous sulfate 28 mg iron Tablet
56 mg PO DAILY
omeprazole 20 mg Tablet,Delayed Release (Dr/Ec)
20 mg PO DAILY
cholecalciferol (vitamin D3) [Vitamin D3] 50 mcg (2,000 unit) Tablet
50 mcg PO DAILY
omega 6-mwr-pcz-fish oil [Fish Oil] 1,000 (120-180) mg Capsule
1 cap PO BID
Glucosamine Chondroitin 550-30-1 mg Capsule
1 cap PO BID
ginseng 100 mg
200 mg PO DAILY
hydrochlorothiazide 25 mg
25 mg PO DAILY
B Complex-Vitamin C 200/120 Mg
1 cap PO HS
Referrals:
Kaushik Cotton MD [Active, Urology] - Call in 1-3 days for appt
UNKNOWN - PT DOES,NOT KNOW [Family Provider]
Activity Restrictions/Additional Instructions:
Please follow-up with your primary care provider in 1 week. Please call attached number to schedule appointment with urology to address your ongoing urinary frequency.
PLEASE RETURN TO THE ER SHOULD YOU DEVELOP PAIN WITH URINATION, URINARY RETENTION, INABILITY URINATE, URINARY HESITANCY, ABDOMINAL PAIN, PELVIC PAIN, FEVERS OR CHILLS, CONFUSION, WEAKNESS, CHEST PAIN, SHORTNESS OF BREATH, OR ANY OTHER SIGNS OR
SYMPTOMS WORRISOME TO YOU.
Interventions
Interventions:
*Risk Screen - Suicide Last Done: 08/11/25 03:15
*General Assessment Last Done: 08/11/25 03:15
*Neglect/Abuse Screening Last Done: 08/11/25 03:15
*ED- Fall Risk Assessment Last Done: 08/11/25 03:15
*ED COVID-19 Vaccine History Last Done: 08/11/25 03:15
*ED Influenza Vaccine History Last Done: 08/11/25 03:15
*Nursing Disposition Last Done: 08/11/25 08:16
ED-Male Genitourinary Assessment Last Done: 08/11/25 03:19
Discharge Date and Time
Discharge Date/Time: 08/11/25 07:55
Print Language: SINGAPOREAN
[2025-08-11 04:39] LABS: Urine Character Clear (Clear)
[2025-08-11 04:46] LABS: Urine Squamous Cell 0-2 /LPF (Few)
[2025-08-11 04:47] LABS: Urine Red Blood Cell 0-2 /HPF (0-2); Urine White Cell 0-2 /HPF (0-5)
[2025-08-11 05:00] VITALS: BP 175/77
[2025-08-11 06:04] VITALS: BP 179/98
== END 2025-08-11 07:55 | disposition home or self-care (01) ==
LOC: EMR 03:06
PROVIDERS: Physician Assistant; EMERGENCY PHYSICIAN Student in an Organized Health Care Education/Training Program
DX: R35.0 Frequency of micturition (principal); I10 Essential (primary) hypertension; E78.00 Pure hypercholesterolemia, unspecified; K21.9 Gastro-esophageal reflux disease without esophagitis; M54.50 Low back pain, unspecified; G89.29 Other chronic pain; Z63.8 Other specified problems related to primary support group
CPT/HCPCS: 99283; 81003; 81015